=== PATIENT | female | born 1975 | race Caucasian/White ===

== ENCOUNTER 2016-12-08 16:27 | Inpatient (IN) | payer OTHER ==
[~2016-12-08] VITALS: Ht 157.5 cm; Wt 117.6 kg
[~2016-12-08 16:27] MED LIST: GLPZ10T PO; METF1000 PO; PRO20 PO
[2016-12-08 16:43] VITALS: BP 134/87; PULSE 115; RESP 14; O2SAT 97
--- NOTE | 2016-12-08 17:18 | ED.REPORT ---
HPI-NVD Date of Service Dec 08, 2016 ED Provider: Abdirahman Carrillo MD Pt is a 41 year old female with a hx of DM, asthma, high cholesterol, chronic back pain, fibromyalgia, and Sjgren's syndrome presenting to the ED complaining of nausea, vomiting and diarrhea. She reports that she had fever, chills, vomiting and diarrhea onset 1 week ago. Symptoms resolved, and then returned 3 days ago along with fatigue, headache, diaphoresis, body aches, back pain, and epigastric pain. Denies cough, runny nose or recent sick contacts. She states that she has had multiple episodes of vomiting daily, with more vomiting than diarrhea. Nursing Notes Stated Complaint: DEHYDRATION Chief Complaint: Female Abdominal Pain Nursing Notes Reviewed: Yes (Talko, Social Point not reconciled) Allergies: Coded Allergies: Sulfa (Sulfonamide Antibiotics) (Verified Allergy, Intermediate, Rash, 02/10) erythromycin base (Unverified Allergy, Mild, UNKNOWN MAYBE RASH, 12/08/16) linezolid (Verified Allergy, Unknown, rash, 05/02/12) ibuprofen (Verified Adverse Reaction, Intermediate, NAUSEA, 05/02/12) Scheduled Atorvastatin (Lipitor) 40 Mg Tablet 40 MG PO HS Fluoxetine (Fluoxetine) 20 Mg Capsule 60 MG PO DAILY Folic Acid (Folic Acid) 1 Mg Tablet 15 MG PO DAILY Gabapentin (Gabapentin) 100 Mg Capsule 100 MG PO QAM Gabapentin (Gabapentin) 100 Mg Capsule 300 MG PO HS Glipizide (Glipizide) 5 Mg Tablet 10 MG PO BIDWM Metformin (Metformin) 500 Mg Tablet 500 MG PO BIDWM Omeprazole (Omeprazole) 20 Mg Capsule.dr 40 MG PO QAM Pilocarpine (Pilocarpine) 5 Mg Tablet 10 MG PO TID Scheduled PRN Acetaminophen (Acetaminophen) 325 Mg Tablet 325 MG PO Q4H PRN PRN Fever/Pain General Time Seen by MD: 17:16 Chief Complaint Nausea, Vomiting Hx Obtained From: Patient Arrived By: Walk-in Onset Occurred: 3 days ago Symptom Duration: Since onset Vomiting: Vomiting > 10 episodes Location: : Epigastric Quality: Painful Severity: Current: Moderate Severity: Maximum: Moderate Associated with: Reports: Abdominal pain, Fever, Headache, Shaking chills Recent Healthcare: No recent doctor visit, No recent hospitalization Similar Sx Previous: No Past Medical History Past Medical History Reports DM, asthma, high cholesterol, chronic back pain, fibromyalgia, and Sjgren's syndrome Past Surgical History shoulder, arm, and back surgery Smoking History Never Smoker Social History Alcohol Use: "Social" Other Social History: Ambulatory Status Independent Review of Systems Constitutional: Reports: Chills, Fatigue, Fever Ears / Nose / Throat: Denies: Sinus problem GI: Reports: Abdominal pain, Diarrhea, Nausea, Vomiting Skin: Reports Diaphoresis Neurologic: Reports: Headache Complete sys rev & neg: except as marked. Respiratory: Denies: Non-productive cough Musculoskeletal: Reports: Back pain Physical Exam Initial Vital Signs Vital Signs (First) Date Time Temp Pulse Resp B/P Pulse Ox O2 Delivery O2 Flow Rate FiO2 12/08/16 16:43 36.8 115 14 134/87 97 Room Air Initial VS: Reviewed, Vital signs abnormal (inc hr) Head / Eyes: Atraumatic, Normocephalic, PERRL ENT: Mucous membranes moist, Conjunctiva normal, No scleral icterus Respiratory: Breath sounds normal, Clear to auscultation, No respiratory distress Cardiovascular: Regular rate & rhythm, Heart sounds normal, Intact distal pulses Neurologic: Alert, Oriented, Nonfocal Psychiatric: Mood/affect normal, Behavior normal, Normal thought content General/Constitutional: Awake Appearance / Presentation: Positive: Obese Very fatigued Abdomen: Soft, Non-tender Skin: No rash, Warm, Dry, Intact Neck: No meningismus Interpretation & Diagnostics Interpretation & Diagnostics: US ABDOMEN: IMPRESSION: Cholelithiasis and gallbladder sludge. Gallbladder wall thickening and positive sonographic Tiwari's sign, which is suspicious for acute cholecystitis. Please correlate clinically and with LFTs. Pancreas not well-visualized. Therefore recommend clinical correlation. Dictated by: Elmer Vazquez M.D. on 12/08/2016 at 21:49 Lab Results Interpretation Result Diagram: 12/08/16 1800 12/08/16 1800 Test 12/08/16 17:09 12/08/16 17:31 12/08/16 18:00 12/08/16 20:18 Hold Urine Received (Received) Urine Color Yellow (YELLOW) Urine Appearance Hazy (CLEAR,HAZY) Urine pH 6.0 (5.0-8.0) Urine Specific [place] 1.030 (1.003-1.035) Urine Protein Tracemg/dL (NEG,TRACE) Urine Glucose (UA) Negativemg/dL (NEGATIVE) Urine Ketones Negativemg/dL (NEGATIVE) Urine Occult Blood Trace (NEGATIVE) Urine Nitrite Negative (NEGATIVE) Urine Bilirubin Negative (NEGATIVE) Urine Urobilinogen Normalmg/dL (NORMAL) Urine Leukocyte Esterase Moderate (NEGATIVE) Urine RBC 0-2/hpf (0-2) Urine WBC 0-5/hpf (0-5) Urine Epithelial Cells None/hpf (NONE-MOD) Urine Crystals None seen (NONE SEEN) Urine Bacteria Few/hpf (NONE-FEW) Urine Hyaline Casts None/lpf (NONE) Urine Granular Casts None seen (NONE SEEN) Urine Waxy Casts None seen (NONE SEEN) Urine Red Blood Cell Casts None seen (NONE SEEN) Urine White Blood Cell Casts None seen (NONE SEEN) Urine Mucus None seen (None Seen) Urine Trichomonas None seen (NONE SEEN) Urine Yeast None (NONE SEEN) Urinalysis Comment None Urine Culture Reflexed Indicated White Blood Count 9.4th/mm3 (3.8-10.1) Red Blood Count 3.83mil/mm3 (3.90-5.20) Hemoglobin 11.4g/dL (12.0-15.6) Hematocrit 34.0% (35.0-46.0) Mean Corpuscular Volume 88.8fL (81-100) Mean Corpuscular Hemoglobin 29.8pg (27.0-35.0) Mean Corpuscular Hemoglobin Concent 33.5% (32.0-37.0) Red Cell Distribution Width 12.4% (12.3-15.4) Platelet Count 333bil/L (150-400) Neutrophils (%) (Auto) 84.7% (40-74) Lymphocytes (%) (Auto) 6.7% (14-46) Monocytes (%) (Auto) 7.9% (4-12) Eosinophils (%) (Auto) 0.3% (0-5) Basophils (%) (Auto) 0.2% (0-3) Prothrombin Time 11.0sec (8.1-12.5) Prothromb Time International Ratio 1.03ratio Sodium Level 134mEq/L (134-144) Potassium Level 4.7mEq/L (3.5-5.2) Chloride Level 94mEq/L (97-108) Carbon Dioxide Level 25mmol/L (18-29) Blood Urea Nitrogen 6mg/dL (6-24) Creatinine 0.58mg/dL (0.57-1.00) Estimat Glomerular Filtration Rate 163mL/min (>59) Glucose Level 183mg/dL (60-99) Lactic Acid Level 1.2mmol/L (0.4-2.0) Calcium Level 8.0mg/dL (8.5-10.1) Total Bilirubin 0.3mg/dL (0.0-1.2) Aspartate Amino Transf (AST/SGOT) 61U/L (0-50) Alanine Aminotransferase (ALT/SGPT) 33U/L (0-32) Alkaline Phosphatase 177U/L (25-150) Total Protein 6.9g/dL (6.4-8.4) Albumin 3.4g/dL (3.4-5.0) Lipase 18U/L (13-60) Acetaminophen Level < 15.0ug/mL Rx (10-25) Lab Results Interpretation: CBC normal CMP new LFT abnormalities, lipase normal, trace hyperglycemia Lipase is normal is negative Re-Eval/Medical Decision Med Decision/Clinical Course This is a 41-year-old obese female presents with abdominal pain nausea vomiting discomfort radiated to the back. He also reports a little bit of trace diarrhea , but is mostly abdominal pain and vomiting. She appears uncomfortable but not toxic. Some mild tenderness in the epigastric right upper quadrant region initially, but is mild-on repeat exam after pain persists. Symptoms started a week ago she had symptoms or flulike illness, missing a resolve, then symptoms recurred and persisted over the past few days. Patient multiple titrated doses of pain and nausea medicines but remained symptomatic. On reexamination she has clear tenderness and discomfort in the right upper epigastric pain then and then evident on her first and initial premedication exam. At the same time her labs returned back with new LFT abnormalities. Prior ultrasound and states she has known stones and she has not had her gallbladder removed, so this point a ultrasound was obtained. This ultrasound is a positive Tiwari's, positive gallbladder wall thickening at 8 mm , positive sludge, positive stones and a suggestive cholecystitis, and the patient has increased LFTs correspond to this. The case was discussed with the surgeon Dr. Sandoval the patient's being admitted to the surgical service plan of nothing by mouth, IV antibiotics, and pain and nausea medication. Just prior to being admitted before she did spike a fever. She has been started on Zosyn. He does not have jaundice, she does not have guarding, she does not clinically appear septic-just uncomfortable. She does not have overt cholangitis. Source of Hx: Old records (none in emr) Re-Evaluation/Progress : Time of Eval: 22:02 Patient Status: Condition improved Re-Evaluation/Progress Note: Discussed plan for admission and surgery in the morning. Pt understands and agrees with plan. Consultation : Referral / Consult Name: Tashi Sandoval MD Consulted With: Surgeon Call Returned at: 21:42 Manager Hotel: Will see patient, Agrees with plan, Accepts admit Differential Diagnosis: Positive: Cholecystitis, Dehydration, Negative: Drug toxicity, Drug-med reaction, Pancreatitis, Counseled Regarding: Diagnosis, Lab results, Need for follow-up, When/why to return to ED Discharge & Departure Impression: Primary Impression: Cholecystitis Disposition: Home Discharge Condition All VS Reviewed: Yes Condition: Improved Scribe Attestation Portions of this note were transcribed by Gemma Vazquez. I, Dr. Carrillo personally performed the history, physical exam and medical decision-making; I reviewed and confirmed the accuracy of the information in the transcribed note. Signed by: Yessica Galeas, 12/08/2016 and 2201. Abdirahman Carrillo MD Dec 08, 2016 17:18 GEMMA VAZQUEZ Dec 08, 2016 17:37
[2016-12-08] MEDS ORDERED: Ondansetron 2 mg/mL 2 mL Inj IVPUSH ONE ×3 (17:25→22:05)
[2016-12-08] MEDS ORDERED: 0.9% Sodium Chloride 1,000 ML IV ONE ×3 (17:25→22:35)
[2016-12-08] MEDS ORDERED: HYDROmorphone 0.5 mg/0.5 mL iSecure Syringe IVPUSH ONE (17:25)
[2016-12-08 17:41] LABS: APPEARANCE,URINE HAZY (CLEAR,HAZY); COLOR,URINE YELLOW (YELLOW)
[2016-12-08 17:42] LABS: OCCULT BLOOD,URINE TRACE (NEGATIVE); UROBILINOGEN,URINE NORMAL (NORMAL)
[2016-12-08 18:13] LABS: BASOPHILS % (AUTO) 0.2 % (0-3); EOSINOPHILS % (AUTO) 0.3 % (0-5); MONOCYTES % (AUTO) 7.9 % (4-12); Mean Corpuscular Hemoglobin 29.8 pg (27.0-35.0); Mean Corpuscular Volume 88.8 fL (81-100); NEUTROPHILS % (AUTO) 84.7 % (40-74); Platelet Count 333 bil/L (150-400)
[2016-12-08] MEDS ORDERED: HYDROmorphone 1 mg/mL Inj IVPUSH ONE ×2 (19:10→22:05)
--- NOTE | 2016-12-08 21:52 | DRSVH ---
PROCEDURE: US ABDOMEN ([id number]) INDICATIONS: abd pain ho stones, incr pain and inc LFTs TECHNIQUE: Real-time scanning was performed of the abdominal and retroperitoneal organs, with image documentatio n. COMPARISON: [facility], [place], ABDOMEN SONOGRAM, 05/12/2001, 9:42. FINDINGS: Liver: Liver is coarsely echogenic. No focal hepatic lesion Gallbladder: 3 cm gallstone is present there is also gallbladder sludge. Gallbladder wall thickening measuring up to 8mm in particular at the gallbladder neck. There is a positive sonographic Tiwari sig n Biliary ducts: Intrahepatic bile ducts are non-dilated. Extrahepatic bile duct caliber measures 5-6 mm. Normal is 6-7 mm or less in diameter, or 10 mm or less post-cholecystectomy. Pancreas: Not well-visualized Spleen: Spleen is normal in size and homogeneous in echotexture. Kidneys: Kidneys are normal in size and echotexture. Right kidney measures 10.9 cm long; left kidne y measures 13.5 cm long. No hydronephrosis or nephrolithiasis. No solid masses. Aorta: Visualized aorta is normal in caliber at less than 3 cm. Iliacs: Proximal common iliac arteries are normal in caliber at less than 2.5 cm. IVC: Intrahepatic inferior vena cava is patent. Miscellaneous: No free abdominal fluid. IMPRESSION: Cholelithiasis and gallbladder sludge. Gallbladder wall thickening and positive sonographic Tiwari's sign, which is suspicious for acute cholecystitis. Please correlate clinically and with LFTs. Pancreas not well-visualized. Therefore recommend clinical correlation.. Dictated by: Elmer Vazquez M.D. on 12/08/2016 at 21:49 Approved by: Elmer Vazquez M.D. on 12/08/2016 at 21:52
[2016-12-08 22:05] LABS: INR 1.03 ratio
[2016-12-08] MEDS ORDERED: Piperacillin-Tazo 3.375 Gm Inj 3.375 GM in Dextrose 5% Minibag Plus 50 ML IV ONE (22:05)
[2016-12-08] MEDS ORDERED: HYDROmorphone 0.5 mg/0.5 mL iSecure Syringe IVPUSH PRN (22:05)
[2016-12-08] MEDS ORDERED: Alum-Mag Hydrox-Simeth 30 mL Suspension PO PRN (22:15)
[2016-12-08] MEDS ORDERED: HYDROmorphone PCA 0.2 mg/mL 30 mL Inj IV PRN (22:15)
[2016-12-08] MEDS ORDERED: Ondansetron 2 mg/mL 2 mL Inj IVPUSH PRN (22:15)
[2016-12-08] MEDS ORDERED: GLPZ5T PO (22:17)
[2016-12-08] MEDS ORDERED: METF500T4 PO ×2 (22:17)
[2016-12-08] MEDS ORDERED: PILO5TAB2 PO (22:18)
[2016-12-08] MEDS ORDERED: FLUO20CA25 PO (22:20)
[2016-12-08] MEDS ORDERED: LIP40 PO (22:21)
[2016-12-08] MEDS ORDERED: OMEP20CA11 PO (22:21)
[2016-12-08] MEDS ORDERED: GABA-500 PO ×2 (22:22)
[2016-12-08 22:24] VITALS: BP 130/78; PULSE 104; RESP 20
[2016-12-08] MEDS ORDERED: Promethazine Inj 12.5 MG in Dextrose 5%-Pha MIX 50 ML IV PRN (22:25)
[2016-12-08] MEDS ORDERED: ACET325T51 PO (22:26)
[2016-12-08] MEDS ORDERED: FOLI1TAB18 PO (22:26)
[2016-12-08] MEDS ORDERED: HYDR200T5 PO (22:29)
[2016-12-08] MEDS: 0.9% Sodium Chloride 1,000 ML IV SCH (22:32)
[2016-12-08] MEDS ORDERED: metroNIDAZOLE Inj 1,000 MG in IV Premix 1 EACH IV ONE (22:35)
[2016-12-08 22:40] VITALS: BP 130/78; PULSE 104; RESP 20; O2SAT 96
[2016-12-08 22:58] VITALS: BP 131/74; PULSE 108; RESP 24; O2SAT 96
[2016-12-09] VITALS (14 sets, daily range): BP systolic 108–141; BP diastolic 62–71; PULSE 106–117; RESP 15–28; O2SAT 92–100
--- NOTE | 2016-12-09 02:57 | NUR ---
Admit Patient arrived to room 1029 around 2300. A&Ox3, answering questions appropriately. Able to stand and walk from ER stretcher to [facility] bed. Complaints of nausea, Zofran IVP given with effective results. Rates abd pain a 03/27. ABSTRACTOR set up per MD orders. IV patent and infusing appropriately. Made NPO after MN in preparation for surgery later today. Admit completed with patient. Med rec completed in ER. MRSA swab obtained and sent to lab r/t history of MRSA. Placed on contact precautions until swab results received. Oriented to room and call light.
[2016-12-09 06:45] LABS: BASOPHILS % (AUTO) 0.1 % (0-3); EOSINOPHILS % (AUTO) 0 % (0-5); MONOCYTES % (AUTO) 5.2 % (4-12); Mean Corpuscular Hemoglobin 29.6 pg (27.0-35.0); Mean Corpuscular Volume 89.3 fL (81-100); NEUTROPHILS % (AUTO) 88.6 % (40-74); Platelet Count 252 bil/L (150-400)
[2016-12-09 08:11] LABS: Hepatitis A Antibody IgM Negative (Negative); Hepatitis B Core Antibody IgM Negative (Negative)
[2016-12-09] MEDS ORDERED: Influenza (Adult) Vaccine 0.5 mL Syringe IM ONE ×2 (08:30→16:40)
[2016-12-09] MEDS: Insulin Human REGular 300 Unit/3 mL Inj SUBQ SCH ×4 (09:00→21:58)
--- NOTE | 2016-12-09 09:00 | PCM.HPANE ---
Patient Data Surgeon Admitting Provider:Tashi Sandoval MD Attending Provider:Tashi Sandoval MD Primary Care Physician:Vikas Gomez MD Other Provider:Leon Hooks Anesthesia Reason for Visit Cholecystitis Ht/WT & BMI Height (Feet): 5 Height (Inches): 2.00 Weight (Kilograms): 113.000 Body Mass Index 45.84 Allergies Coded Allergies: Sulfa (Sulfonamide Antibiotics) (Verified Allergy, Intermediate, Rash, 02/10) erythromycin base (Unverified Allergy, Mild, UNKNOWN MAYBE RASH, 12/08/16) linezolid (Verified Allergy, Unknown, rash, 05/02/12) ibuprofen (Verified Adverse Reaction, Intermediate, NAUSEA, 05/02/12) Past Anesthesia History Anesthesia History: Denies:: Anesthesia Reactions Diabetes History Hx Diabetes?: Yes MRSA MRSA: No Medications Reported Medications Hydroxychloroquine Sulfate 200 Mg [id number] Mg PO BID #30 TABLET Ref 0 12/08/16 Acetaminophen 325 Mg [id number] Mg PO Q4H PRN Fever/Pain Ref 0 12/08/16 Folic Acid 1 Mg Hztjxa15 Mg PO DAILY 30 Days 12/08/16 Gabapentin 100 Mg Rwosayn632 Mg PO HS 30 Days Ref 0 12/08/16 Gabapentin 100 Mg Zmttrws201 Mg PO QAM 30 Days Ref 0 12/08/16 Omeprazole 20 Mg Capsule.dr40 Mg PO QAM Ref 0 12/08/16 Atorvastatin (Lipitor)40 Mg Duuuyo52 Mg PO HS Ref 0 12/08/16 Fluoxetine 20 Mg Sllaofc20 Mg PO DAILY Ref 0 12/08/16 Pilocarpine 5 Mg Sdiflu11 Mg PO TID 12/08/16 Metformin 500 Mg Lodhwc991 Mg PO BIDWM Ref 0 12/08/16 Glipizide 5 Mg Jufady99 Mg PO BIDWM 30 Days 12/08/16 Discontinued Reported Medications Metformin 500 Mg Kebdrk062 Mg PO BID Ref 0 12/08/16 FLUoxetine-Expunged Drug, Do Not Renew! 20 Mg Rgvfcgp54 Mg PO DAILY 09/23/11 glipiZIDE-Expunged Drug, Do Not Renew! 10 Mg Bmolrs89 Mg PO QAM 09/23/11 Metformin-Expunged Drug, Do Not Renew! 1,000 Mg Tablet1,000 Mg PO DAILY 09/23/11 History History of ENT Problems?: Yes Other HEENT Pertinent History: dry mouth, nose and eyes Hx of Heart Problems?: No Cardiovascular History: Positive for:: Hypertension Denies:: Congestive Heart Failure Hx of Respiratory Problem?: Yes Respiratory History: Positive for:: Asthma Dyspnea (with weather changes) Pneumonia Denies:: COPD Chest Surgery Emphysema Hemoptysis Tuberculosis Hx Neurologic Problems?: No Hx of GI Problems?: Yes Gastrointestinal History: Positive for:: Heartburn (controlled with beef-free diet) Denies:: Diverticulitis Gastroesphageal Reflux Gastrointestinal Bleeding Hepatitis Hiatal Hernia Rectal Bleeding Hx of Problems?: Yes Genitourinary History: Positive for:: Urinary Tract Infection Female Hx: Denies:: Currently Endometriosis Pelvic Inflammatory Problems with Breasts? Hx Musculoskeletal Problems?: Yes Musculoskeletal History: Positive for:: Back Injury (disc disease 2 back surgeries) Denies:: Joint Replacement Musculoskeletal Trauma Hx of Psycho/Social Problems?: Yes Psycho Social History: Positive for:: Hx Depression Denies:: Anxiety Bipolar Disorder Suicide Attempt Hx Surgeries?: Yes (lumbar discectomy, fusion, tubal 2001, arm fracture repair) Hx Any Other Health Problems?: Yes Other History: Positive for:: Hospitalization (childbirth, surgeries ) Denies:: Cancer Endocrine Disease Thyroid Disease History Blood Transfusions: Positive for:: Accept Blood Products? Denies:: Blood Transfusions Hx Diabetes: Yes Hx Alcohol Use: NoAlcoholic Drinks Per Day: OCCASIONALLYHx Substance Use: No Smoking Status: Never Smoker Have You Smoked inLast 12 mo: No Stop/Bang Treated for Sleep Apnea?: No Do You Have a CPAP Machine?: No S-Snoring: Do You Snore Loudly: Yes T-Tired: feel tired, fatigued: Yes O-Obsered: Observed not breath: No P-Blood Pressure: treated: No B- Body Mass Index > 35 kg/m2: Yes A- Age over 50: No N- Neck Large Circumference: No G- Gender Male: No LIANA Total Score: 4 LIANA Risk Assessment: High Risk, =/>3 Yes LIANA Category 2: Yes Risk Assessment Category Category 1A: Patient has history of documented sleep apnea, and HAS NOT received any narcotic, sedative or anesthesia administration during this stay. Category 1B: Patient has history of documented sleep apnea, and HAS received any narcotic , sedative or anesthesia administration during this stay Category 2: Patient has SUSPECTED Obstructive Sleep Apnea, and HAS received any narcotic , sedative or anesthesia administration during this stay. Category 3: Patient has SUSPECTED Obstructive Sleep Apnea and HAS NOT received narcotic, sedative or anesthesia administration during this stay. Category 4: Outpatient in Procedural Areas with known sleep apnea or who screen positive for High Risk via the STOP/BANG questionnaire. Exam Exam Vital Signs Vital Signs Date Time Temp Pulse Resp B/P Pulse Ox O2 Delivery O2 Flow Rate FiO2 12/09/16 07:50 39.4 111 18 123/65 92 Room Air 12/09/16 05:22 15 94 12/09/16 03:16 38.8 110 20 126/65 96 Room Air 12/09/16 02:59 15 93 12/09/16 01:00 18 93 General Appearance: Alert HEENT/AIRWAY: MP 2 Lungs: Clear to Auscultation Heart: Exam Unremarkable Meds/Labs/Diagnostics Admission Meds Current Medications Sodium Chloride 1,000 ml @ 0 mls/hr Q0M ONCE IV Last administered on 18:14; Start 12/08/16 at 17:25; Stop 12/08/16 at 17:26; Status DC Sodium Chloride (Normal Saline) 1,000 ml @ 0 mls/hr Q0M ONCE IV Last administered on 12/08/16 17:25; Start 12/08/16 at 17:25; Stop 12/08/16 at 17:26 ; Status DC Ondansetron HCl (Zofran Inj) 8 mg ONCE ONCE IVPUSH Last administered on 18:15; Start 12/08/16 at 17:25; Stop 12/08/16 at 17:27; Status DC Hydromorphone HCl (Dilaudid Inj) 0.5 mg ONCE ONCE IVPUSH Last administered on 12/08/16 18:15; Start 12/08/16 at 17:25; Stop 12/08/16 at 17:27; Status DC Hydromorphone HCl (Dilaudid Inj) 1 mg ONCE ONCE IVPUSH Last administered on 19:22; Start 12/08/16 at 19:10; Stop 12/08/16 at 19:16; Status DC Ondansetron HCl (Zofran Inj) 8 mg ONCE ONCE IVPUSH Last administered on 19:22; Start 12/08/16 at 19:10; Stop 12/08/16 at 19:16; Status DC Hydromorphone HCl 1 mg 1 mg ONCE ONCE IVPUSH Last administered on 12/08/16 22 :32; Start 12/08/16 at 22:05; Stop 12/08/16 at 22:06; Status DC Piperacillin Sod/ Tazobactam Sod/ Dextrose/Water (Zosyn 3.375 Gm Inj/D5W Minibag Plus) 50 ml @ 100 mls/hr ONCE ONCE IV Last administered on 12/08/16 22:31; Start 12/08/16 at 22:05; Stop 12/08/16 at 22:34; Status DC Ondansetron HCl 4 mg 4 mg ONCE ONCE IVPUSH Last administered on 12/08/16 23: 39; Start 12/08/16 at 22:05; Stop 12/08/16 at 22:06; Status DC Sodium Chloride (Normal Saline) 1,000 ml @ 100 mls/hr Q10H IV Last administered on 12/08/16 22:32; Start 12/08/16 at 22:11 Acetaminophen 975 mg 975 mg ONCE ONCE PO Last administered on 12/08/16 22:40 ; Start 12/08/16 at 22:30; Stop 12/08/16 at 22:31; Status DC Metronidazole/ Sodium Chloride/ Premix (Flagyl Inj/IV Premix) 200 ml @ 200 mls/ hr ONCE ONCE IV Last administered on 12/09/16 00:43; Start 12/08/16 at 22:35 ; Stop 12/08/16 at 23:34; Status DC Labs Test 12/08/16 17:09 12/08/16 17:31 12/08/16 18:00 12/08/16 20:18 Hold Urine Received (Received) Urine Color Yellow (YELLOW) Urine Appearance Hazy (CLEAR,HAZY) Urine pH 6.0 (5.0-8.0) Urine Specific [place] 1.030 (1.003-1.035) Urine Protein Tracemg/dL (NEG,TRACE) Urine Glucose (UA) Negativemg/dL (NEGATIVE) Urine Ketones Negativemg/dL (NEGATIVE) Urine Occult Blood Trace (NEGATIVE) Urine Nitrite Negative (NEGATIVE) Urine Bilirubin Negative (NEGATIVE) Urine Urobilinogen Normalmg/dL (NORMAL) Urine Leukocyte Esterase Moderate (NEGATIVE) Urine RBC 0-2/hpf (0-2) Urine WBC 0-5/hpf (0-5) Urine Epithelial Cells None/hpf (NONE-MOD) Urine Crystals None seen (NONE SEEN) Urine Bacteria Few/hpf (NONE-FEW) Urine Hyaline Casts None/lpf (NONE) Urine Granular Casts None seen (NONE SEEN) Urine Waxy Casts None seen (NONE SEEN) Urine Red Blood Cell Casts None seen (NONE SEEN) Urine White Blood Cell Casts None seen (NONE SEEN) Urine Mucus None seen (None Seen) Urine Trichomonas None seen (NONE SEEN) Urine Yeast None (NONE SEEN) Urinalysis Comment None Urine Culture Reflexed Indicated Prothrombin Time 11.0sec (8.1-12.5) Prothromb Time International Ratio 1.03ratio Lactic Acid Level 1.2mmol/L (0.4-2.0) Acetaminophen Level < 15.0ug/mL Rx (10-25) Hepatitis A IgM Antibody Negative (Negative) Hepatitis B Surface Antigen Negative (Negative) Hepatitis B Core IgM Antibody Negative (Negative) Hepatitis C Antibody <0.1s/co ratio (0.0-0.9) Hepatitis C Comment Comment (.) Test 12/09/16 06:29 White Blood Count 8.9th/mm3 (3.8-10.1) Red Blood Count 3.55mil/mm3 (3.90-5.20) Hemoglobin 10.5g/dL (12.0-15.6) Hematocrit 31.7% (35.0-46.0) Mean Corpuscular Volume 89.3fL (81-100) Mean Corpuscular Hemoglobin 29.6pg (27.0-35.0) Mean Corpuscular Hemoglobin Concent 33.1% (32.0-37.0) Red Cell Distribution Width 12.3% (12.3-15.4) Platelet Count 252bil/L (150-400) Neutrophils (%) (Auto) 88.6% (40-74) Lymphocytes (%) (Auto) 5.8% (14-46) Monocytes (%) (Auto) 5.2% (4-12) Eosinophils (%) (Auto) 0% (0-5) Basophils (%) (Auto) 0.1% (0-3) Sodium Level 135mEq/L (134-144) Potassium Level 4.1mEq/L (3.5-5.2) Chloride Level 97mEq/L (97-108) Carbon Dioxide Level 25mmol/L (18-29) Blood Urea Nitrogen 5mg/dL (6-24) Creatinine 0.64mg/dL (0.57-1.00) Estimat Glomerular Filtration Rate 145mL/min (>59) Glucose Level 175mg/dL (60-99) Calcium Level 7.2mg/dL (8.5-10.1) Total Bilirubin 0.4mg/dL (0.0-1.2) Aspartate Amino Transf (AST/SGOT) 48U/L (0-50) Alanine Aminotransferase (ALT/SGPT) 34U/L (0-32) Alkaline Phosphatase 189U/L (25-150) Total Protein 6.1g/dL (6.4-8.4) Albumin 3.1g/dL (3.4-5.0) Lipase 14U/L (13-60) Plan Impression Patient chart reviewed, patient interviewed and anesthestic plan with risks, benefits, and alternatives discussed, and informed consent obtained. ASA Physical Status: ASA2 Mod Systemic Disease Anesthetic Support Modalities: [place] Scope Anesthetic Plan: GA Bene/Risks/Altern/Consents: Yes HP Complete Prior to Induction: Yes Juan Britton MD Dec 09, 2016 09:00
[2016-12-09] MEDS: 0.9% Sodium Chloride 1,000 ML IV SCH ×2 (09:02→18:11)
[2016-12-09] MEDS: Piperacillin-Tazo 3.375 Gm Inj 3.375 GM in Dextrose 5% Minibag Plus 50 ML IV SCH ×3 (10:07→23:38)
--- NOTE | 2016-12-09 10:08 | NUR ---
Transfer To OR via bed at 09:55. Report given to Ab[place]ola. Saline locked. Zosyn not administered, did not arrive from pharmacy despite fax and phone call. [employer] OFFICER aware. accompanied pt to OR.
[2016-12-09] MEDS ORDERED: Neostigmine 1 mg/mL 5 mL Inj ONE (11:21)
[2016-12-09] MEDS ORDERED: fentaNYL-PF 50 mCg/mL 2 mL Inj ONE (11:21)
[2016-12-09] MEDS ORDERED: Glycopyrrolate 0.2 mg/mL 5 mL Inj ONE (11:21)
[2016-12-09] MEDS ORDERED: Ondansetron 2 mg/mL 2 mL Inj ONE (11:21)
[2016-12-09] MEDS ORDERED: Propofol 10,000 mCg/mL 20 mL Inj ONE (11:21)
[2016-12-09] MEDS ORDERED: MetoCLOpramide 5 mg/mL 2 mL Inj ONE (11:21)
--- NOTE | 2016-12-09 11:22 | HP ---
[address] [address] HISTORY AND PHYSICAL PATIENT: JANE HEDRICK : 1975 MR#: [id number] ADMIT: 12/08/2016 JOB ID: [id number] CORRECTED REPORT: DATE OF SERVICE: 12/09/2016 CHIEF COMPLAINT: This is a 41-year-old woman with abdominal pain. This consultation is requested by Dr. Abdirahman Carrillo of the Emergency Department. HISTORY OF PRESENT ILLNESS: This is a 41-year-old woman presented to the emergency department late last night with a 9-day history of abdominal pain and vomiting. She also complains of diarrhea, fevers, and chills. Her symptoms initially improved and then three days ago worsened again and also included fatigue, headache, body aches, back pain. She complains that she is thirsty today. She received IV Zosyn and was admitted to the hospital overnight with plans for probable cholecystectomy in the morning. Since being admitted, her labs have shown mild elevation in her LFTs including AST 61, ALT 33, and alkaline phosphatase 177, with a normal bilirubin level of 0.3. Lactate was normal. White blood cell count was normal. She has been febrile and tachycardic. PAST MEDICAL HISTORY: 1. Diabetes. 2. Asthma. 3. High cholesterol. 4. Chronic back pain. 5. Fibromyalgia. 6. Sjogren syndrome. PAST SURGICAL HISTORY: 1. She has had panniculitis in the past and has had incision and drainage for this, with MRSA infection. 2. Orthopedic operations on her shoulder and back. MEDICATIONS: Home medications are reviewed and include atorvastatin, fluoxetine, folate, gabapentin, glipizide, metformin, omeprazole, pilocarpine. ALLERGIES: SULFA, ERYTHROMYCIN, LINEZOLID, IBUPROFEN. SOCIAL HISTORY: She lives in [place], [place], with her who is present today. She is not currently working outside of the home. She only occasionally drinks alcohol. She is not a smoker. FAMILY HISTORY: Reviewed and noncontributory. REVIEW OF SYSTEMS: Eleven point review of systems is performed and is positive for nausea, fever, chills, abdominal pain, diarrhea, vomiting, headache, diaphoresis, back pain, and is otherwise negative. PHYSICAL EXAMINATION: Temperature 39.4, heart rate 111, blood pressure 123/65, respiratory rate 18, saturation 92% on room air. General: Awake and alert, mild distress. She is diaphoretic. Head: Normocephalic. Neck: Supple. Cardiac: Tachycardia. Respiratory: Breathing easily on room air. Abdomen: Soft, obese. Tenderness in the right upper quadrant to moderate palpation. No rebound or guarding. Remaining quadrants of the abdomen are not tender to palpation. She has previous incision and drainage sites on the lower abdomen from her panniculitis. Neurologic: No gross deficits. Psychiatric: Normal cognition and judgment. Extremities: No edema. LABORATORY: White blood cell count is 8.9, hematocrit 31.7, platelets 252. Blood glucose was 161 this morning. Comprehensive metabolic panel is normal with the exception of blood glucose 175 this morning, calcium 7.2. AST normalized to 48. ALT is 34, alkaline phosphatase 189, albumin 3.1. Lactate is 1.2. Creatinine is 0.64. IMAGING: Images from her abdominal ultrasound are personally reviewed and reveal cholelithiasis including sludge as well as a significant 3 cm gallstone. She was reported to have a positive sonographic Tiwari sign. There is gallbladder wall thickening. All of these findings are suspicious for acute cholecystitis. ASSESSMENT: A 41-year-old woman with acute cholecystitis. I recommend laparoscopic cholecystectomy. She is at a very increased risk for complications including wound infection, both due to her morbid obesity and history of the need for incision and drainage for panniculitis. She at a much elevated risk for conversion to open because she has had 9 days of symptoms and is acutely febrile and tachycardic, indicative that she may have a gangrenous gallbladder. I described the risks and benefits of the procedure, described why conversion to open is sometimes necessary, and described some of the alternatives to a full laparoscopic cholecystectomy which can include a subtotal cholecystectomy and cholecystostomy tube. I described the risks of common bile duct injury and the consequences of this. Her and sister were present for this discussion. I tuyet the anatomy of the hepatobiliary system during the discussion. She and they agree and she elects to proceed. This will be performed on an urgent basis this morning. Corrected by DANIELLE 12/25/16 at 12:00pm Report type.
[2016-12-09] MEDS ORDERED: Bupivacaine-MPF 0.5% W/EPI 30 mL Inj INFILTRATE ONE (11:38)
[2016-12-09] MEDS ORDERED: Lactated Ringer's 1,000 ML IV ONE ×2 (11:44)
[2016-12-09] MEDS ORDERED: Lactated Ringer's 500 ML IV PRN (12:14)
[2016-12-09] MEDS ORDERED: Labetalol 5 mg/mL 4 mL Inj IV PRN (12:15)
[2016-12-09] MEDS ORDERED: HYDROmorphone 1 mg/mL Inj IVPUSH PRN (12:15)
[2016-12-09] MEDS ORDERED: fentaNYL-PF 50 mCg/mL 2 mL Inj IVPUSH PRN (12:15)
[2016-12-09] MEDS ORDERED: Ondansetron 2 mg/mL 2 mL Inj IVPUSH PRN ×2 (12:15→14:55)
[2016-12-09] MEDS ORDERED: MetoCLOpramide 5 mg/mL 2 mL Inj IVPUSH PRN ×2 (12:15→14:55)
[2016-12-09] MEDS ORDERED: EPHEDrine Sulfate 50 mg/mL Inj IVPUSH PRN (12:15)
[2016-12-09] MEDS ORDERED: Dexamethasone 4 mg/mL Inj IVPUSH PRN (12:15)
[2016-12-09] MEDS ORDERED: Atropine 0.4 mg/mL Inj IVPUSH PRN (12:15)
[2016-12-09] MEDS ORDERED: Phenylephrine 10,000 mCg/mL Inj IVPUSH PRN (12:15)
[2016-12-09] MEDS: Lactated Ringer's 1,000 ML IV SCH ×2 (12:35→15:28)
--- NOTE | 2016-12-09 15:07 | PCM.ANEP1 ---
Post Anesthesia Phase 1 PACU Phase 1 Assessment Vital Signs Vital Signs Date Time Temp Pulse Resp B/P Pulse Ox O2 Delivery O2 Flow Rate FiO2 12/09/16 15:05 109 28 139/66 95 Room Air 12/09/16 15:00 111 27 135/66 97 Room Air 12/09/16 14:55 113 19 141/68 98 Room Air 12/09/16 14:50 116 19 125/66 100 Simple Mask 8 12/09/16 14:45 37.7 117 15 139/66 100 Simple Mask 8 12/09/16 10:11 18 92 12/09/16 07:50 39.4 111 18 123/65 92 Room Air Anesthetic Administered: GA Level of Alertness: Awake, talking PAEZ's with Equal Strength: Yes Pain: Yes (RN awares) Pain Scale Score: 7 Oxygen Delivery: Simple Mask Lungs: Clear to Auscultation Dermatome Level: Full Sensation Juan Britton MD Dec 09, 2016 15:07
--- NOTE | 2016-12-09 15:08 | PCM.ANEP2 ---
Post Anesthesia Evaluation ASA/CMS Post Anesthesia VS in Patient's Normal Range?: Yes Resp Stable; Airway Patent?: Yes CV Function & Hydration Stable: Yes Mental Status Recovered?: Yes Pain control Satisfactory?: Yes N/V Control Satisfactory?: Yes Juan Britton MD Dec 09, 2016 15:08
--- NOTE | 2016-12-09 15:09 | NUR ---
Social Work: Brief Note Data: Pt is a 41 year old female admitted 12/08/16 for cholecystitis per H&P. Pts insurance is Omid RAVI and PCP is Vikas Gomez MD. EMR reviewed. Pt has no fdc care insurance or VA benefits. Pt resides in [place] with her . She remains independent with her ADLs, does not use any DME, and drives. Pt does not have DPOA on file, SW will follow up regarding this. SW attempted to talk to patient at bedside, but she was in the OR for a laparoscopic cholecystectomy. SW will continue to follow for discharge needs. Assessment: Pt who is independent at base. Plan: Pt who is independent at base was in OR when SW attempted to meet with pt. SW will continue to follow for needs. JT Rodriguez
--- NOTE | 2016-12-09 15:31 | OP ---
[address] [address] OPERATIVE REPORT PATIENT: JANE HEDRICK : 1975 MR#: [id number] ADMIT: 12/08/2016 JOB ID: [id number] DATE OF SURGERY: 12/09/2016 PREOPERATIVE DIAGNOSIS(ES): Acute cholecystitis. POSTOPERATIVE DIAGNOSIS(ES): Acute gangrenous cholecystitis. PROCEDURE PERFORMED: Laparoscopic cholecystectomy. SURGEON: Romana Johns MD ASSOCIATE PROFESSOR OF SOCIOLOGY: Sekou Centeno PA-C; Gardenia Sow MS3 HISTORY OF PRESENT ILLNESS: This is a 41-year-old woman who presented with a 9-day history of abdominal pain and vomiting. She had right upper quadrant tenderness and an abdominal ultrasound performed in the emergency department revealed a thickened gallbladder wall, positive sonographic Tiwari sign, sludge and stones in the gallbladder including a 3 cm stone, and was consistent with acute cholecystitis. She was febrile and tachycardic and therefore was taken urgently to the operating room for laparoscopic cholecystectomy. FINDINGS: 1. Severe inflammation with gangrene of a portion of the wall of the gallbladder. 2. A single large 3 cm gallstone was identified. 3. Severe adhesions from inflammation. DESCRIPTION OF PROCEDURE: The patient was brought to the operating room and placed in supine position. General anesthesia was induced. A warming blanket and SCDs were placed. Antibiotics were infused. A Sandy catheter was placed. The operative field was prepped and draped in sterile fashion. A pause was performed to confirm the correct patient, procedure, and site. A 10 cm vertical midline incision was made 5 cm above the umbilicus due to the patient's body habitus. The abdominal cavity was entered with an Optiview trocar and an the intraperitoneal space was insufflated. Three additional trocars were placed, one in the mid epigastrium and two in the right upper quadrant. The gallbladder was found to be severely inflamed, with omentum adhesed to it. Upon grasping it, the wall was found to be partially gangrenous and it burst, revealing hydrops; white bile spilled out and was suctioned. The gallbladder was then grasped and lifted cephalad. The omentum was taken off of it slowly and carefully. The duodenum was adhered to the gallbladder due to the inflammation and was very carefully dissected off of it. A very slow and meticulous dissection then began to carefully expose the cystic duct and cystic artery. A Ray-Shakira was inserted into the abdomen during the procedure to assist with tamponade of very mild bleeding coming from the inflammatory rind around the gallbladder. It was removed at the end of the case. The common bile duct was identified. The cystic duct and cystic artery were very closely approximated and were adherent. The cystic plate was carefully dissected. The cystic duct and cystic artery were adhered to one another with thick inflammation and due to the potential for bleeding from the cystic artery, after careful tedious dissection, the decision was made to not separate them. This cystic plate was carefully exposed such that the cystic duct and the cystic artery were seen to be the only structures that were entering the gallbladder. The cystic duct was very short and the risk of additional dissection very high, therefore the decision was made to not proceed with cholangiogram. Two clips were placed around the cystic duct and cystic artery simultaneously on the patient's side and a single clip was placed around these structures on the gallbladder side and it was divided. The gallbladder was then lifted cephalad and taken off of its bed on the liver with electrocautery. At the most superior and anterior aspect the mucosa of the gallbladder remained on the bed of the liver in a 2 cm x 2 cm distribution. This was ablated with electrocautery. In order to grasp the gallbladder sufficiently to remove it from the bed of the gallbladder, a single large 3 cm black gallstone was removed. Ultimately an EndoCatch bag was placed and the gallstone and gallbladder were placed within it. The area was copiously irrigated and suctioned. The bed of the liver was carefully inspected to confirm that it was hemostatic. The clips were carefully inspected to confirm that there was no bleeding or bile leak. The fascial defect had to be opened at the supraumbilical port site in order to extract the gallbladder and the large gallstone. This was then closed with two interrupted 0 PDS stitches. 0.5% Marcaine with epinephrine was infused into the fascia at the site for postoperative analgesia. The three additional ports were removed under direct vision. The skin was closed with 4-0 Monocryl. Sterile dressings were placed. The patient was awakened from general anesthesia and taken to the postoperative care unit in good condition. COMPLICATIONS: None. SPECIMENS: Gallbladder and gallstone. ESTIMATED BLOOD LOSS: 5 mL. A modifier 22 is requested for this case because, given the extent of the inflammation, it took greater than three times the normal amount of time to complete. MTDD
--- NOTE | 2016-12-09 15:50 | NUR ---
Post-op Returned to [facility] room 1029 via bed at 15:25. Report received from Toni. Awake and oriented. Equal strength and movement in all extremities. 96% RA; METER REPAIRER HELPER for LIANA risk. Still febrile and tachycardic. IVF and antibiotics admin as ordered. 4 lap sites CDI. Requests and tolerates water. Family in room.
--- NOTE | 2016-12-09 15:53 | PCM.CHPMED ---
Subjective Date of Service: Dec 09, 2016 Provider requesting consult: Romana Johns MD Primary Physician: Admitting Physician: Tashi Sandoval MD Primary Care Physician: Vikas Gomez MD Attending Physician: Tashi Sandoval MD Chief Complaint: Chief Complaint: positive blood cultures History of Present Illness: Patient is a 41 year old female with a pmh of DM, asthma, high cholesterol, chronic back pain, fibromyalgia, and Sjgren's syndrome that is presenting with acute cholecystitis requiring surgical intervention. Patient was admitted through the ER and had blood cultures drawn in 4 seperate bottles. Patient was seen to have positive blood cultures in 2 of the four bottles. Patient was evaluated, seen to have cholecystitis and had a laprascopic removal of the gallbladder. Patient tolerated the procedure without incidence and is currently resting comfortably. Patient upon questioning has a history of MRSA bacteremia that resulted after patient had an I&D of a pannicular abscess. Patient went on a protracted course of antibiotics for the next few weeks as per the patient and the family, however they are unsure to as what the antibiotic was, nor are they confident to as whether there was an infection in the patients heart. Patient is adament that there was no cardio involvment and that this was simply due to persistent bacteremia. Patient otherwise has no complaints and no symptoms that would suggest septic emboli. Review of Systems: Constitutional: Reports: Malaise, Sweats, Weakness, Denies: Chills, Fever, Other Eyes: Denies: Blurred Vision, Conjunctive Inflammation, Double Vision, Eyelid Inflammation, Other, Pain, Redness, Vision Changes ENT: Denies: Dental Problems, Dysphagia, Ear Discharge, Ear Pain, Hoarseness, Membranes Dry, Nasal Congestion, Nose Discharge, Nose Pain, Other, Throat Pain, Tinnitus, Ulcers/Sores in Mouth Neck: Denies: Mass, Other, Pain, Swelling Cardiovascular: Denies: Chest Pain, Edema, Irregular Heart Rate, Other, Palpitations, Rapid Heart Rate, SOB on Exertion, SOB while laying flat Gastrointestinal: Reports: Abdominal Pain, Change in Appetite, Nausea, Vomiting , Denies: Black tarry stools, Blood in stool (red), Constipation, Diarrhea, Heartburn, Other, Use of Laxatives Genitourinary: Denies: Change in Frequency, Decrease Urinary Output, Decrease Urinary Stream, Dysuria, Has burning or pain with urination, Hematuria, Hemodialysis, Incontinence, No burning or pain with urination, Nocturia, Other, Peritoneal Dialysis Reproductive Female: Reports: Other (no history of recent skin lesions either ) , Denies: /Para, Last Menstrual Cycle, Sexually Active, Use of Contraceptive, Venereal Disease Skin: Denies: Blisters, Bruising, Dry or Flakiness, Itching, Lesions, Other, Rash, Redness, Ulcers Neurological: Denies: Change in LOC, Change in Speech, Confusion, Difficulty Walking, Dizziness, Double Vision, Drooping Mouth, Incoordination, Localized Weakness, Numbness, Other, Seizures, Somnolence, Tremors, Vertigo Psychologic: Denies: Agitation, Anxiety, Depression, Insomnia, Other, PTSD- Post Traumatic Stress Disorder, Suicidal Thoughts Endocrine: Denies: Abnormal Hair Growth, Blood Glucose Review, Diaphoresis, Excessive Thirst, Intolerant to Cold, Intolerant to Heat, Other, Recent A1C, Urinating Frequently, Weight Gain Hematologic: Denies: Abnormal Bleeding, Bruising, Other Lymphatic: Denies: Adenopathy, Swollen Lymph Node Above Collarbone, Swollen Lymph Nodes in Neck, Tender Lymph Nodes Axillia, Tender Lymph Nodes Groin PMH HEENT History: Denies:: Cataracts Glaucoma Hearing Problem Hx Ear Infection Hx Eye Problem Sinus Problem TMJ Cardiovascular History: Denies:: AICD Abdominal Aortic Aneurism Atrial Fibrillation Cardiac Surgery Congestive Heart Failure Coronary Artery Disease Deep Vein Thrombosis Heart Murmur Hypertension Other Cardiac Disorders Pacemaker Peripheral Vascular Rheumatic Fever Thrombophlebitis Valvular Heart Disease Respiratory History: Denies:: Asthma COPD Chest Surgery Emphysema Oxygen Administration Pneumonia Pulmonary Embolism Sleep Apnea Tuberculosis Use of C-PAP Machine Use of Inhalers / NEBS Gastrointestinal History: Positive for a: Gastroesphageal Reflux Genitourinary History: Denies: HX of Hemodialysis Kidney Stones Peritoneal Dialysis Urinary Tract Infection Reproductive History Female: Denies: Currently ? Endometriosis Pelvic Inflammatory DX Problems with Breasts? Neurological History: Denies: Alzheimer's Disease CVA Dementia Multiple Sclerosis Parkinson's Disease Peripheral Neuropathy Seizures TIA Musculoskeletal History: Positive for: Back Injury (protruding disc s/p disectomy and fusion ) Psycho Social History: Denies:: Anxiety Bipolar Disorder Hx Depression Suicide Attempt Skin History: Denies:: History Skin Disorders? Pressure Ulcers Hematic/Lymphatic/Neoplastic: Denies: Anemia Blood Disorders Cancer Clotting Problems Swollen Glands Bedside Blood Glucose: 161 Surgical History I&D of abdominal wall abscess Rotator Cuff repair Lap Marisela Spinal fusion and discectomy Home Medications Atorvastatin (Lipitor) 40 Mg Tablet 40 MG PO HS Fluoxetine (Fluoxetine) 20 Mg Capsule 60 MG PO DAILY Folic Acid (Folic Acid) 1 Mg Tablet 15 MG PO DAILY Gabapentin (Gabapentin) 100 Mg Capsule 100 MG PO QAM Gabapentin (Gabapentin) 100 Mg Capsule 300 MG PO HS Glipizide (Glipizide) 5 Mg Tablet 10 MG PO BIDWM Metformin (Metformin) 500 Mg Tablet 500 MG PO BIDWM Omeprazole (Omeprazole) 20 Mg Capsule.dr 40 MG PO QAM Pilocarpine (Pilocarpine) 5 Mg Tablet 10 MG PO TID Allergies: Coded Allergies: Sulfa (Sulfonamide Antibiotics) (Verified Allergy, Intermediate, Rash, 02/10) erythromycin base (Unverified Allergy, Mild, UNKNOWN MAYBE RASH, 12/08/16) linezolid (Verified Allergy, Unknown, rash, 05/02/12) ibuprofen (Verified Adverse Reaction, Intermediate, NAUSEA, 05/02/12) Family History Family History non-contributory Social History Hx Alcohol Use: NoAlcoholic Drinks Per Day: OCCASIONALLYHx Substance Use: No Hx Tobacco Use: Yes Smoking Status: Never Smoker Exam Vital Signs Vital Sign - Last Date Time Temp Pulse Resp B/P Pulse Ox O2 Delivery O2 Flow Rate FiO2 12/09/16 10:11 18 92 12/09/16 07:50 39.4 111 123/65 Room Air Intake and Output 12/08/16 12/08/16 12/09/16 Cumulative From/Thru 15:00 23:00 07:00 12/08/16 16:43 - 12/09/16 06:34 Intake Total 2000 ml 929 ml 2929 ml Output Total 500 ml 500 ml Balance 2000 ml 429 ml 2429 ml Intake Oral 100 ml 100 ml IV Total 2000 ml 829 ml 2829 ml Output Urine Total 500 ml 500 ml # Voids 2 1 3 # Bowel Movements 0 0 General: Alert, Oriented X3 Head: Normal Eyes: PERRLA Mouth: Mucous Membr Moist/Dennis Neck: Supple Chest & Lungs: Chest Wall Normal, Clear to auscultation & percussion Back, Sacral Area and Buttocks: Normal (no evidence of lesions ) Abdomen: Tender, Distended, Obese Musculoskeletal: Normal Range of Motion Extremities: No cyanosis/clubbing/edma bilat Additional Information: No allegra lesions, blisters or ulcerations Lab and Diagnostics Result Diagram: 12/09/1662812/09/16628 Assessment & Plan Assessment Patient is a 41 year old female s/p lap marisela that is presenting with a positive blood cultures in 2/4 bottles, that is most likely growing strep sp. Patient has a history of bacteremia with MRSA in the past. Patient is currently stable without any signs of allegra sepsis upon examination. Patient is otherwise hemodynamically stable. Patient has no skin lesions of infections on exam that would presdispose patient to bacteremia. - would recommend repeating the blood cultures X 2 from two different sites - currently patient is on zosyn which has intermediate results with strep sp - would continue zosyn for the time being - if blood cultures are positive would recommend an DAVID and infectious disease consult Problems: VTE Mechanical Devices: Intermittant Pneumatic CD Juancho Joseph MD Dec 09, 2016 14:06
[2016-12-09 17:13] LABS: BASOPHILS % (AUTO) 0.2 % (0-3); EOSINOPHILS % (AUTO) 0 % (0-5); MONOCYTES % (AUTO) 4.2 % (4-12); Mean Corpuscular Hemoglobin 29.5 pg (27.0-35.0); Mean Corpuscular Volume 89.8 fL (81-100); NEUTROPHILS % (AUTO) 91.8 % (40-74); Platelet Count 244 bil/L (150-400)
[2016-12-09] MEDS: oxyCODONE-Acetamin 5-325 mg Tablet PO PRN ×3 (18:14→23:38)
--- NOTE | 2016-12-09 18:19 | NUR ---
Post op progress Tolerates small amounts solid food (pudding and bites of chicken), taking oral fluids. Converted from VASCULAR TECHNOLOGIST SONOGRAPHER to Percocet for abd pain 01/25. Denies nausea. Denies flatus, bowel tones hypoactive. Sat in chair for dinner, walked to bathroom with steady gait. IVF and antibiotics infusing per orders. S/s insulin administered. 4 lap sites with bandaids CDI. Continue to monitor.
--- NOTE | 2016-12-09 20:30 | NUR ---
Pain pt. reported pain of 6/10 less than 2 hours after receiving 1 tab of Percocet. Pt. was given a second tab as indicated in order Pt. now reports pain of 4/10. It may be beneficial to give pt. 2 tabs as initial dose to prevent pain recurrence.
[2016-12-10] MEDS: 0.9% Sodium Chloride 1,000 ML IV SCH ×3 (02:30→23:21)
[2016-12-10 04:42] VITALS: BP 121/75; PULSE 111; RESP 18; O2SAT 92
--- NOTE | 2016-12-10 05:34 | NUR ---
pain pt received 1-2 tabs of Percocet for pain this shift. she reports pain at a tolerable level. she is able to get up and ambulate to the bathroom SBA. steady on her feet. still has low grade fever and is tachycardic with activity. care continues.
[2016-12-10 06:59] LABS: BASOPHILS % (AUTO) 0.2 % (0-3); EOSINOPHILS % (AUTO) 0.1 % (0-5); MONOCYTES % (AUTO) 5.4 % (4-12); Mean Corpuscular Hemoglobin 29.3 pg (27.0-35.0); Mean Corpuscular Volume 88.5 fL (81-100); NEUTROPHILS % (AUTO) 85.6 % (40-74); Platelet Count 257 bil/L (150-400)
[2016-12-10] MEDS: Piperacillin-Tazo 3.375 Gm Inj 3.375 GM in Dextrose 5% Minibag Plus 50 ML IV SCH ×3 (07:57→23:22)
[2016-12-10] MEDS: Insulin Human REGular 300 Unit/3 mL Inj SUBQ SCH ×4 (07:58→22:56)
[2016-12-10] MEDS: oxyCODONE-Acetamin 5-325 mg Tablet PO PRN ×4 (09:15→22:50)
[2016-12-10 10:24] VITALS: BP 113/70; PULSE 102; RESP 25; O2SAT 93
[2016-12-10 15:05] VITALS: BP 126/77; PULSE 104; RESP 18; O2SAT 95
--- NOTE | 2016-12-10 15:27 | PCM.PNSURG ---
Subjective Date of Service: Dec 10, 2016 Visit Information: Reason for Visit Cholecystitis Surgery/Surgery Date JAQUAN HOLDER 12/09/16 Post-Op Day #1 Date of Admission: Dec 08, 2016 at 22:11 Hospital Day # Subjective: Feels much better than prior to her operation. Eating Jell-O and drinking fluids with no nausea or vomiting. Denies flatus or bowel movement. Comfortable on oral analgesic. Ambulating in the room. Postop General: Other (as above) Gastrointestinal: Tolerating Oral Feedings, No N/V Pain Management: PO Postop Activity: Ambulating in Room Only Objective Vital Sign- Last 8 Hours Date Time Temp Pulse Resp B/P Pulse Ox O2 Delivery O2 Flow Rate FiO2 12/10/16 15:05 37.7 104 18 126/77 95 Room Air 12/10/16 10:24 37.4 102 25 113/70 93 Room Air Intake and Output- Last 8 Hour 12/10/16 Cumulative From/Thru 07:00 12/08/16 16:43 - 12/10/16 05:33 Intake Total 650 ml 6805 ml Output Total 550 ml 1600 ml Balance 100 ml 5205 ml Intake Oral 650 ml 1348 ml IV Total 5457 ml Output Urine Total 550 ml 1600 ml # Voids 2 7 # Bowel Movements 0 0 General: Alert, Cooperative, No Acute Distress, Anicteric Lungs: Clear to Auscultation Heart: No Murmurs/Rubs/Gallops Abdomen: Soft, Non-tender, Protuberant SURGICAL WOUND : Wound General Appearence: Steri Strips, Sutures, No Erythema, No Discharge, Wound under dressing Neuro: Normal Speech Catheters: None Result Diagram: 12/10/16 0635 12/10/16 0635 Assessment & Plan Impression Primary diagnosis: Acute gangrenous cholecystitis. POD #1 recovering as expected. Positive preoperative blood cultures which have been repeated by hospitalist lean consultant. Other diagnoses: 1. Diabetes. 2. Asthma. 3. High cholesterol. 4. Chronic back pain. 5. Fibromyalgia. 6. Sjogren syndrome. Problems: Plan 1. Diet as tolerated 2. May be ready for discharge as early as tomorrow if cleared by the hospitalist service recognizing that this is pending repeat blood culture results. 3. May shower. Pain Management: Oral analgesic VTE Prophylaxis: SCDs Resuscitation Status: CPR: Attempt Resuscitation Sekou Centeno PA-C Dec 10, 2016 15:27
--- NOTE | 2016-12-10 16:21 | PCM.PNMED ---
Subjective Date of Service Dec 10, 2016 Subjective Patient is having some abdominal pain. Has tolerated clear liquid diet. Exam Vital Signs Vital Sign - Last Date Time Temp Pulse Resp B/P Pulse Ox O2 Delivery O2 Flow Rate FiO2 12/10/16 15:05 37.7 104 18 126/77 95 Room Air 12/09/16 14:50 8 Intake and Output 12/09/16 12/09/16 12/10/16 Cumulative From/Thru 14:59 22:59 06:59 12/08/16 16:43 - 12/10/16 05:33 Intake Total 2428 ml 798 ml 650 ml 6805 ml Output Total 50 ml 500 ml 550 ml 1600 ml Balance 2378 ml 298 ml 100 ml 5205 ml Intake Oral 598 ml 650 ml 1348 ml IV Total 2428 ml 200 ml 5457 ml Output Urine Total 50 ml 500 ml 550 ml 1600 ml # Voids 2 2 7 # Bowel Movements 0 0 Exam Constitutional obese woman in mild pain distress Head: Normocephalic atraumatic Chest: Clear to auscultation Cor: Regular rate and rhythm S1-S2 Abdomen: soft mild diffuse tenderness bowel sounds hypoactive extremities: No pedal edema Neuro: Alert and oriented 3 motor strength is intact bilaterally Lab and Diagnostics Laboratory Tests 72 Hours Test 12/08/16 17:09 12/08/16 17:31 12/08/16 18:00 12/08/16 20:18 Hold Urine Received (Received) Urine Color Yellow (YELLOW) Urine Appearance Hazy (CLEAR,HAZY) Urine pH 6.0 (5.0-8.0) Urine Specific [place] 1.030 (1.003-1.035) Urine Protein Tracemg/dL (NEG,TRACE) Urine Glucose (UA) Negativemg/dL (NEGATIVE) Urine Ketones Negativemg/dL (NEGATIVE) Urine Occult Blood Trace (NEGATIVE) Urine Nitrite Negative (NEGATIVE) Urine Bilirubin Negative (NEGATIVE) Urine Urobilinogen Normalmg/dL (NORMAL) Urine Leukocyte Esterase Moderate (NEGATIVE) Urine RBC 0-2/hpf (0-2) Urine WBC 0-5/hpf (0-5) Urine Epithelial Cells None/hpf (NONE-MOD) Urine Crystals None seen (NONE SEEN) Urine Bacteria Few/hpf (NONE-FEW) Urine Hyaline Casts None/lpf (NONE) Urine Granular Casts None seen (NONE SEEN) Urine Waxy Casts None seen (NONE SEEN) Urine Red Blood Cell Casts None seen (NONE SEEN) Urine White Blood Cell Casts None seen (NONE SEEN) Urine Mucus None seen (None Seen) Urine Trichomonas None seen (NONE SEEN) Urine Yeast None (NONE SEEN) Urinalysis Comment None Urine Culture Reflexed Indicated White Blood Count 9.4th/mm3 (3.8-10.1) Red Blood Count 3.83mil/mm3 (3.90-5.20) Hemoglobin 11.4g/dL (12.0-15.6) Hematocrit 34.0% (35.0-46.0) Mean Corpuscular Volume 88.8fL (81-100) Mean Corpuscular Hemoglobin 29.8pg (27.0-35.0) Mean Corpuscular Hemoglobin Concent 33.5% (32.0-37.0) Red Cell Distribution Width 12.4% (12.3-15.4) Platelet Count 333bil/L (150-400) Neutrophils (%) (Auto) 84.7% (40-74) Lymphocytes (%) (Auto) 6.7% (14-46) Monocytes (%) (Auto) 7.9% (4-12) Eosinophils (%) (Auto) 0.3% (0-5) Basophils (%) (Auto) 0.2% (0-3) Prothrombin Time 11.0sec (8.1-12.5) Prothromb Time International Ratio 1.03ratio Sodium Level 134mEq/L (134-144) Potassium Level 4.7mEq/L (3.5-5.2) Chloride Level 94mEq/L (97-108) Carbon Dioxide Level 25mmol/L (18-29) Blood Urea Nitrogen 6mg/dL (6-24) Creatinine 0.58mg/dL (0.57-1.00) Estimat Glomerular Filtration Rate 163mL/min (>59) Glucose Level 183mg/dL (60-99) Lactic Acid Level 1.2mmol/L (0.4-2.0) Calcium Level 8.0mg/dL (8.5-10.1) Total Bilirubin 0.3mg/dL (0.0-1.2) Aspartate Amino Transf (AST/SGOT) 61U/L (0-50) Alanine Aminotransferase (ALT/SGPT) 33U/L (0-32) Alkaline Phosphatase 177U/L (25-150) Total Protein 6.9g/dL (6.4-8.4) Albumin 3.4g/dL (3.4-5.0) Lipase 18U/L (13-60) Acetaminophen Level < 15.0ug/mL Rx (10-25) Hepatitis A IgM Antibody Negative (Negative) Hepatitis B Surface Antigen Negative (Negative) Hepatitis B Core IgM Antibody Negative (Negative) Hepatitis C Antibody <0.1s/co ratio (0.0-0.9) Hepatitis C Comment Comment (.) Test 12/09/16 06:29 12/09/16 16:54 12/10/16 06:35 White Blood Count 8.9th/mm3 (3.8-10.1) 12.1th/mm3 (3.8-10.1) 10.9th/mm3 (3.8-10.1) Red Blood Count 3.55mil/mm3 (3.90-5.20) 3.53mil/mm3 (3.90-5.20) 3.31mil/mm3 (3.90-5.20) Hemoglobin 10.5g/dL (12.0-15.6) 10.4g/dL (12.0-15.6) 9.7g/dL (12.0-15.6) Hematocrit 31.7% (35.0-46.0) 31.7% (35.0-46.0) 29.3% (35.0-46.0) Mean Corpuscular Volume 89.3fL (81-100) 89.8fL (81-100) 88.5fL (81-100) Mean Corpuscular Hemoglobin 29.6pg (27.0-35.0) 29.5pg (27.0-35.0) 29.3pg (27.0-35.0) Mean Corpuscular Hemoglobin Concent 33.1% (32.0-37.0) 32.8% (32.0-37.0) 33.1% (32.0-37.0) Red Cell Distribution Width 12.3% (12.3-15.4) 12.6% (12.3-15.4) 12.5% (12.3-15.4) Platelet Count 252bil/L (150-400) 244bil/L (150-400) 257bil/L (150-400) Neutrophils (%) (Auto) 88.6% (40-74) 91.8% (40-74) 85.6% (40-74) Lymphocytes (%) (Auto) 5.8% (14-46) 3.6% (14-46) 8.4% (14-46) Monocytes (%) (Auto) 5.2% (4-12) 4.2% (4-12) 5.4% (4-12) Eosinophils (%) (Auto) 0% (0-5) 0% (0-5) 0.1% (0-5) Basophils (%) (Auto) 0.1% (0-3) 0.2% (0-3) 0.2% (0-3) Sodium Level 135mEq/L (134-144) 131mEq/L (134-144) 134mEq/L (134-144) Potassium Level 4.1mEq/L (3.5-5.2) 3.8mEq/L (3.5-5.2) 3.6mEq/L (3.5-5.2) Chloride Level 97mEq/L (97-108) 92mEq/L (97-108) 97mEq/L (97-108) Carbon Dioxide Level 25mmol/L (18-29) 19mmol/L (18-29) 22mmol/L (18-29) Blood Urea Nitrogen 5mg/dL (6-24) 8mg/dL (6-24) 6mg/dL (6-24) Creatinine 0.64mg/dL (0.57-1.00) 0.71mg/dL (0.57-1.00) 0.57mg/dL (0.57-1.00) Estimat Glomerular Filtration Rate 145mL/min (>59) 129mL/min (>59) 166mL/min (>59) Glucose Level 175mg/dL (60-99) 335mg/dL (60-99) 181mg/dL (60-99) Hemoglobin A1c 9.6% (4.8-5.6) Calcium Level 7.2mg/dL (8.5-10.1) 7.6mg/dL (8.5-10.1) 7.1mg/dL (8.5-10.1) Total Bilirubin 0.4mg/dL (0.0-1.2) 0.6mg/dL (0.0-1.2) 0.5mg/dL (0.0-1.2) Aspartate Amino Transf (AST/SGOT) 48U/L (0-50) 97U/L (0-50) 62U/L (0-50) Alanine Aminotransferase (ALT/SGPT) 34U/L (0-32) 54U/L (0-32) 42U/L (0-32) Alkaline Phosphatase 189U/L (25-150) 180U/L (25-150) 162U/L (25-150) Total Protein 6.1g/dL (6.4-8.4) 6.4g/dL (6.4-8.4) 5.5g/dL (6.4-8.4) Albumin 3.1g/dL (3.4-5.0) 2.9g/dL (3.4-5.0) 2.8g/dL (3.4-5.0) Lipase 14U/L (13-60) Result Diagram: 12/10/16 0635 12/10/16 0635 Assessment & Plan # Postop day #1 status post lap cholecystectomy for acute gangrenous cholecystitis Further directions per general surgery as far as progressing diet. Continue with IV Zosyn Incentive spirometry Encourage ambulation # Type II diabetes, chronic, present on admission On subcutaneous insulin protocol # DVT prophylaxis We will defer to Gen. surgery when they want to initiate or if they would initiate subcutaneous Lovenox versus heparin Continue with SCDs Pain Evaluation: Adequate Pain Control VTE Prophylaxis: SCDs VTE Mechanical Devices: Intermittant Pneumatic CD Resuscitation Status: CPR: Attempt Resuscitation Time spent Time spent 30 minutes Marianela Willett MD Dec 10, 2016 16:21
--- NOTE | 2016-12-10 17:40 | NUR ---
Activity Pt. ambulated around unit with family. Tolerated activity well. No complaints of SOB or ROMAN. Pt. returned to lowered bed with nonskid footwear and call light in reach.
[2016-12-10 19:45] VITALS: BP 100/59; PULSE 101; RESP 20; O2SAT 96
[2016-12-11] MEDS: oxyCODONE-Acetamin 5-325 mg Tablet PO PRN ×5 (04:16→23:10)
[2016-12-11 04:57] VITALS: BP 112/71; PULSE 96; RESP 18; O2SAT 95
--- NOTE | 2016-12-11 06:26 | NUR ---
Pain / fever Pain adequately controlled with Percocet prn. Continues to have intermittent fevers, antibiotics infused per orders. Ambulated loop in hallway before sleep. Hourly rounding ongoing.
[2016-12-11] MEDS: Piperacillin-Tazo 3.375 Gm Inj 3.375 GM in Dextrose 5% Minibag Plus 50 ML IV SCH ×3 (06:39→23:46)
[2016-12-11 06:40] LABS: BASOPHILS % (AUTO) 0.2 % (0-3); EOSINOPHILS % (AUTO) 0.6 % (0-5); MONOCYTES % (AUTO) 6.3 % (4-12); Mean Corpuscular Hemoglobin 29.6 pg (27.0-35.0); Mean Corpuscular Volume 89.1 fL (81-100); NEUTROPHILS % (AUTO) 84.5 % (40-74); Platelet Count 284 bil/L (150-400)
[2016-12-11] MEDS: Insulin Human REGular 300 Unit/3 mL Inj SUBQ SCH ×4 (07:55→21:57)
[2016-12-11] MEDS: 0.9% Sodium Chloride 1,000 ML IV SCH (09:44)
--- NOTE | 2016-12-11 09:56 | PCM.PNSURG ---
Subjective Date of Service: Dec 11, 2016 Visit Information: Reason for Visit Cholecystitis Surgery/Surgery Date LAP GLORY 12/09/16 Post-Op Day #2 Date of Admission: Dec 08, 2016 at 22:11 Hospital Day # Subjective: Drinking liquids and eating hot cereal with no nausea or vomiting, somewhat anorexic. No flatus or BM. Ambulatory without assistance. Comfortable on oral analgesic. Postop General: No Complaints Gastrointestinal: Tolerating Oral Feedings, No N/V Pain Management: PO Postop Activity: Ambulating Independently Objective Vital Sign- Last 8 Hours Date Time Temp Pulse Resp B/P Pulse Ox O2 Delivery O2 Flow Rate FiO2 12/11/16 04:57 37.6 96 18 112/71 95 Room Air Intake and Output- Last 8 Hour 12/11/16 Cumulative From/Thru 07:00 12/08/16 16:43 - 12/11/16 06:27 Intake Total 1775 ml 21207 ml Output Total 800 ml 4400 ml Balance 975 ml 6684 ml Intake Oral 600 ml 3338 ml IV Total 1175 ml 7746 ml Output Urine Total 800 ml 4400 ml # Voids 7 # Bowel Movements 0 0 General: Alert, Cooperative, No Acute Distress Lungs: Clear to Auscultation Heart: Regular Rate/Rhythm Abdomen: Soft, Non-tender, Protuberant SURGICAL WOUND : Wound General Appearence: Steri Strips, Sutures, No Erythema, No Discharge, Wound under dressing Extremities: Thigh&Calf Soft/Nontender Neuro: Normal Speech Catheters: None Result Diagram: 12/11/16 0630 12/10/16 0635 Assessment & Plan Impression Primary diagnosis: Acute gangrenous cholecystitis. POD #2 recovering as expected. Positive preoperative blood cultures which have been repeated by hospitalist configuration consultant. Other diagnoses: 1. Diabetes. 2. Asthma. 3. High cholesterol. 4. Chronic back pain. 5. Fibromyalgia. 6. Sjogren syndrome. Problems: Plan 1. Diet as tolerated 2. Milk of magnesia 3. Disposition as per hospitalist service pending bacteremia treatment and final blood culture results. Pain Management: Oral analgesic VTE Prophylaxis: SCDs Resuscitation Status: CPR: Attempt Resuscitation Sekou Centeno PA-C Dec 11, 2016 09:56
[2016-12-11] MEDS ORDERED: Magnesium Hydroxide 10 mL Oral Concentration PO PRN (10:00)
[2016-12-11] MEDS ORDERED: Magnesium Hydroxide 10 mL Oral Concentration PO ONE (10:00)
--- NOTE | 2016-12-11 14:09 | PATH ---
SURGICAL PATHOLOGY Attending Physician:Romana Johns MD CASE STATUS: Signed Out PATIENT NAME: JANE HEDRICK PID: [id number] : 1975 DATE COLLECTED:12/09/2016 22:01 SPECIMEN: Gallbladder CLINICAL HISTORY: CHOLECYSTITIS 1). GALLBLADDER FINAL DIAGNOSIS: 1.GALLBLADDER: CHOLELITHIASIS WITH ASSOCIATED ACUTE AND CHRONIC CHOLECYSTITIS WITH HEMORRHAGE AND PROMINENT FIBROSIS. ICD10 CODEK80.66 GROSS DESCRIPTION: The specimen is received in formalin, labeled with the patient's name, sublabeled as gallbladder and consists of an opened gallbladder (length-6.2 cm, diameter-3.5 cm). The cystic duct cannot be identified. No lymph nodes are identified. The serosa is staples-nelson smooth and shiny and partially covered in staples flaky friable exudate. The mucosa is brown semi-velvety with a focally pale yellow soft area (2.3 x 1.1 x 0.1 cm) located 1.3 cm from the fundus. The wall is up to 0.5 cm thick. A dark brown smooth shiny oblong calculus (3.5 x 2.7 x 2.5 cm) with a clear crystalline cut surface is also submitted. Section code: (A-C) gallbladder, loan representative, submitted proximal to distal. 12/10/16 . MICRO DESCRIPTION: See diagnosis. ICD-9 CODES: CPT CODES: 1: 75178 Electronically Signed Out Pablo Mills MD [facility] [address], [place] [address] Technical component performed at [facility], [facility] [address], [place], [address]
--- NOTE | 2016-12-11 15:04 | PCM.PNMED ---
Subjective Date of Service Dec 11, 2016 Subjective Patient still with some abdominal pain. She has had no nausea or vomiting. Denies any fevers or chills. Has been ambulating without issues. Exam Vital Signs Vital Sign - Last Date Time Temp Pulse Resp B/P Pulse Ox O2 Delivery O2 Flow Rate FiO2 12/11/16 04:57 37.6 96 18 112/71 95 Room Air 12/09/16 14:50 8 Intake and Output 12/10/16 12/10/16 12/11/16 Cumulative From/Thru 15:00 23:00 07:00 12/08/16 16:43 - 12/11/16 06:27 Intake Total 2504 ml 1775 ml 88209 ml Output Total 2000 ml 800 ml 4400 ml Balance 504 ml 975 ml 6684 ml Intake Oral 1390 ml 600 ml 3338 ml IV Total 1114 ml 1175 ml 7746 ml Output Urine Total 2000 ml 800 ml 4400 ml # Voids 7 # Bowel Movements 0 0 0 Exam Constitutional: Obese female in mild pain distress Head: Normocephalic atraumatic Chest: Clear to auscultation Cor: Regular rate and rhythm S1-S2 without murmur Abdomen: Soft mild diffuse tenderness no rebound no guarding bowel sounds are present Extremities: No pedal edema Lab and Diagnostics Laboratory Tests 72 Hours Test 12/08/16 17:09 12/08/16 17:31 12/08/16 18:00 12/08/16 20:18 Hold Urine Received (Received) Urine Color Yellow (YELLOW) Urine Appearance Hazy (CLEAR,HAZY) Urine pH 6.0 (5.0-8.0) Urine Specific [place] 1.030 (1.003-1.035) Urine Protein Tracemg/dL (NEG,TRACE) Urine Glucose (UA) Negativemg/dL (NEGATIVE) Urine Ketones Negativemg/dL (NEGATIVE) Urine Occult Blood Trace (NEGATIVE) Urine Nitrite Negative (NEGATIVE) Urine Bilirubin Negative (NEGATIVE) Urine Urobilinogen Normalmg/dL (NORMAL) Urine Leukocyte Esterase Moderate (NEGATIVE) Urine RBC 0-2/hpf (0-2) Urine WBC 0-5/hpf (0-5) Urine Epithelial Cells None/hpf (NONE-MOD) Urine Crystals None seen (NONE SEEN) Urine Bacteria Few/hpf (NONE-FEW) Urine Hyaline Casts None/lpf (NONE) Urine Granular Casts None seen (NONE SEEN) Urine Waxy Casts None seen (NONE SEEN) Urine Red Blood Cell Casts None seen (NONE SEEN) Urine White Blood Cell Casts None seen (NONE SEEN) Urine Mucus None seen (None Seen) Urine Trichomonas None seen (NONE SEEN) Urine Yeast None (NONE SEEN) Urinalysis Comment None Urine Culture Reflexed Indicated White Blood Count 9.4th/mm3 (3.8-10.1) Red Blood Count 3.83mil/mm3 (3.90-5.20) Hemoglobin 11.4g/dL (12.0-15.6) Hematocrit 34.0% (35.0-46.0) Mean Corpuscular Volume 88.8fL (81-100) Mean Corpuscular Hemoglobin 29.8pg (27.0-35.0) Mean Corpuscular Hemoglobin Concent 33.5% (32.0-37.0) Red Cell Distribution Width 12.4% (12.3-15.4) Platelet Count 333bil/L (150-400) Neutrophils (%) (Auto) 84.7% (40-74) Lymphocytes (%) (Auto) 6.7% (14-46) Monocytes (%) (Auto) 7.9% (4-12) Eosinophils (%) (Auto) 0.3% (0-5) Basophils (%) (Auto) 0.2% (0-3) Prothrombin Time 11.0sec (8.1-12.5) Prothromb Time International Ratio 1.03ratio Sodium Level 134mEq/L (134-144) Potassium Level 4.7mEq/L (3.5-5.2) Chloride Level 94mEq/L (97-108) Carbon Dioxide Level 25mmol/L (18-29) Blood Urea Nitrogen 6mg/dL (6-24) Creatinine 0.58mg/dL (0.57-1.00) Estimat Glomerular Filtration Rate 163mL/min (>59) Glucose Level 183mg/dL (60-99) Lactic Acid Level 1.2mmol/L (0.4-2.0) Calcium Level 8.0mg/dL (8.5-10.1) Total Bilirubin 0.3mg/dL (0.0-1.2) Aspartate Amino Transf (AST/SGOT) 61U/L (0-50) Alanine Aminotransferase (ALT/SGPT) 33U/L (0-32) Alkaline Phosphatase 177U/L (25-150) Total Protein 6.9g/dL (6.4-8.4) Albumin 3.4g/dL (3.4-5.0) Lipase 18U/L (13-60) Acetaminophen Level < 15.0ug/mL Rx (10-25) Hepatitis A IgM Antibody Negative (Negative) Hepatitis B Surface Antigen Negative (Negative) Hepatitis B Core IgM Antibody Negative (Negative) Hepatitis C Antibody <0.1s/co ratio (0.0-0.9) Hepatitis C Comment Comment (.) Test 12/09/16 06:29 12/09/16 16:54 12/10/16 06:35 12/11/16 06:30 White Blood Count 8.9th/mm3 (3.8-10.1) 12.1th/mm3 (3.8-10.1) 10.9th/mm3 (3.8-10.1) 11.9th/mm3 (3.8-10.1) Red Blood Count 3.55mil/mm3 (3.90-5.20) 3.53mil/mm3 (3.90-5.20) 3.31mil/mm3 (3.90-5.20) 3.11mil/mm3 (3.90-5.20) Hemoglobin 10.5g/dL (12.0-15.6) 10.4g/dL (12.0-15.6) 9.7g/dL (12.0-15.6) 9.2g/dL (12.0-15.6) Hematocrit 31.7% (35.0-46.0) 31.7% (35.0-46.0) 29.3% (35.0-46.0) 27.7% (35.0-46.0) Mean Corpuscular Volume 89.3fL (81-100) 89.8fL (81-100) 88.5fL (81-100) 89.1fL (81-100) Mean Corpuscular Hemoglobin 29.6pg (27.0-35.0) 29.5pg (27.0-35.0) 29.3pg (27.0-35.0) 29.6pg (27.0-35.0) Mean Corpuscular Hemoglobin Concent 33.1% (32.0-37.0) 32.8% (32.0-37.0) 33.1% (32.0-37.0) 33.2% (32.0-37.0) Red Cell Distribution Width 12.3% (12.3-15.4) 12.6% (12.3-15.4) 12.5% (12.3-15.4) 12.5% (12.3-15.4) Platelet Count 252bil/L (150-400) 244bil/L (150-400) 257bil/L (150-400) 284bil/L (150-400) Neutrophils (%) (Auto) 88.6% (40-74) 91.8% (40-74) 85.6% (40-74) 84.5% (40-74 ) Lymphocytes (%) (Auto) 5.8% (14-46) 3.6% (14-46) 8.4% (14-46) 8.0% (14-46) Monocytes (%) (Auto) 5.2% (4-12) 4.2% (4-12) 5.4% (4-12) 6.3% (4-12) Eosinophils (%) (Auto) 0% (0-5) 0% (0-5) 0.1% (0-5) 0.6% (0-5) Basophils (%) (Auto) 0.1% (0-3) 0.2% (0-3) 0.2% (0-3) 0.2% (0-3) Sodium Level 135mEq/L (134-144) 131mEq/L (134-144) 134mEq/L (134-144) Potassium Level 4.1mEq/L (3.5-5.2) 3.8mEq/L (3.5-5.2) 3.6mEq/L (3.5-5.2) Chloride Level 97mEq/L (97-108) 92mEq/L (97-108) 97mEq/L (97-108) Carbon Dioxide Level 25mmol/L (18-29) 19mmol/L (18-29) 22mmol/L (18-29) Blood Urea Nitrogen 5mg/dL (6-24) 8mg/dL (6-24) 6mg/dL (6-24) Creatinine 0.64mg/dL (0.57-1.00) 0.71mg/dL (0.57-1.00) 0.57mg/dL (0.57-1.00) Estimat Glomerular Filtration Rate 145mL/min (>59) 129mL/min (>59) 166mL/min (>59) Glucose Level 175mg/dL (60-99) 335mg/dL (60-99) 181mg/dL (60-99) Hemoglobin A1c 9.6% (4.8-5.6) Calcium Level 7.2mg/dL (8.5-10.1) 7.6mg/dL (8.5-10.1) 7.1mg/dL (8.5-10.1) Total Bilirubin 0.4mg/dL (0.0-1.2) 0.6mg/dL (0.0-1.2) 0.5mg/dL (0.0-1.2) Aspartate Amino Transf (AST/SGOT) 48U/L (0-50) 97U/L (0-50) 62U/L (0-50) Alanine Aminotransferase (ALT/SGPT) 34U/L (0-32) 54U/L (0-32) 42U/L (0-32) Alkaline Phosphatase 189U/L (25-150) 180U/L (25-150) 162U/L (25-150) Total Protein 6.1g/dL (6.4-8.4) 6.4g/dL (6.4-8.4) 5.5g/dL (6.4-8.4) Albumin 3.1g/dL (3.4-5.0) 2.9g/dL (3.4-5.0) 2.8g/dL (3.4-5.0) Lipase 14U/L (13-60) Hematology Comments Result Diagram: 12/11/16 0630 12/10/16 0635 Assessment & Plan # Postop day #2 status post lap cholecystectomy for acute gangrenous cholecystitis Spoke with surgery and per their perspective patient is ready for discharge however given the bacteremia in 2 out of 4 cultures will continue with 2 more days of IV Zosyn Continue with IV Zosyn Incentive spirometry Encourage ambulation # Type II diabetes, chronic, present on admission On subcutaneous insulin protocol # DVT prophylaxis We will go ahead and get subcutaneous Lovenox prophylactic dosing initiated Continue with SCDs while in bed VTE Prophylaxis: SCDs VTE Mechanical Devices: Intermittant Pneumatic CD Resuscitation Status: CPR: Attempt Resuscitation Time spent 30 minutes Marianela Willett MD Dec 11, 2016 15:04
[2016-12-11 16:03] VITALS: BP 118/74; PULSE 93; RESP 18; O2SAT 96
--- NOTE | 2016-12-11 17:38 | NUR ---
Activity / GI Pt up independently in her room and also ambulated in the hallway twice during day shift. Pt reported that she is passing flatus and that she did have an "average" size loose bowel movement today. Pt tolerating diet and PO fluids without problems. Care continues.
[2016-12-11 20:41] VITALS: BP 117/72; PULSE 94; RESP 20; O2SAT 98
--- NOTE | 2016-12-12 00:40 | NUR ---
Patient activity: Patient requested to take a shower. Peripheral IV site was saline locked and [employer] provided a glove/sleeve for IV site. Patient was able to independently shower. Patient is stable on feet and tolerates activity well.
--- NOTE | 2016-12-12 00:41 | NUR ---
Peripheral IV: Patient IV would not flush before administering scheduled antibiotics. Assessed with preceptor and determined that IV site had went bad. This site was discontinued and another nurse started a new peripheral IV site in Right AC. Flushed and hung antibiotics. Patent site and IV/Fluids running without issue.
[2016-12-12] MEDS: oxyCODONE-Acetamin 5-325 mg Tablet PO PRN ×5 (05:21→21:51)
[2016-12-12 05:56] VITALS: BP 108/68; PULSE 92; RESP 20; O2SAT 96
--- NOTE | 2016-12-12 06:07 | NUR ---
Pain Patient complained of abdominal pain /. 2 tabs of Percocet given x2 throughout night. Was effective in reducing pain to 4/10. Patient was able to sleep intermittently. Instructed patient to not let pain get too severe before asking for pain medications since patient wakes up in severe (9/10) pain. Patient denies nausea and vomiting.
[2016-12-12] MEDS: Piperacillin-Tazo 3.375 Gm Inj 3.375 GM in Dextrose 5% Minibag Plus 50 ML IV SCH ×3 (08:14→23:02)
[2016-12-12] MEDS: Insulin Human REGular 300 Unit/3 mL Inj SUBQ SCH ×4 (08:14→21:53)
--- NOTE | 2016-12-12 09:12 | PCM.PNSURG ---
Subjective Visit Information: Reason for Visit Cholecystitis Surgery/Surgery Date LAP MILY 12/09/16 Post-Op Day # Date of Admission: Dec 08, 2016 at 22:11 Hospital Day # Subjective: doing fine, tolerating diet, on IV abx due to + blood culture, on pain meds Objective Objective Awake in bed Sister in room Abd: obese, incisions and dressing clean Vital Sign- Last 8 Hours Date Time Temp Pulse Resp B/P Pulse Ox O2 Delivery O2 Flow Rate FiO2 12/12/16 05:56 36.7 92 20 108/68 96 Room Air Intake and Output- Last 8 Hour 12/12/16 Cumulative From/Thru 07:00 12/08/16 16:43 - 12/12/16 06:17 Intake Total 146 ml 04925 ml Output Total 5350 ml Balance 146 ml 7261 ml Intake Oral 4238 ml IV Total 146 ml 8373 ml Output Urine Total 5350 ml # Voids 7 # Bowel Movements 0 Result Diagram: 12/11/16 0630 12/10/16 0635 Assessment & Plan Impression POD #3 s/p lap mily DM Obesity + blood culture Problems: Plan Continue IV abx til tomorrow (per hospitalist) Hopefully d/c home tomorrow VTE Prophylaxis: SCDs Resuscitation Status: CPR: Attempt Resuscitation Tashi Sandoval MD Dec 12, 2016 09:12
--- NOTE | 2016-12-12 15:37 | PCM.PNMED ---
Subjective Date of Service Dec 12, 2016 Subjective Patient resting in bed. She has been walking and ambulating here along the lemon. Does have some mild abdominal pain. She is progressing or diet and tolerating this well. Exam Vital Signs Vital Sign - Last Date Time Temp Pulse Resp B/P Pulse Ox O2 Delivery O2 Flow Rate FiO2 12/12/16 05:56 36.7 92 20 108/68 96 Room Air 12/09/16 14:50 8 Intake and Output 12/11/16 12/11/16 12/12/16 Cumulative From/Thru 14:59 22:59 06:59 12/08/16 16:43 - 12/12/16 06:17 Intake Total 1381 ml 146 ml 96916 ml Output Total 950 ml 5350 ml Balance 431 ml 146 ml 7261 ml Intake Oral 900 ml 4238 ml IV Total 481 ml 146 ml 8373 ml Output Urine Total 950 ml 5350 ml # Voids 7 # Bowel Movements 0 0 Exam Head: Normocephalic H medic Chest: Clear to auscultation Cor: Regular rate and rhythm S1-S2 Abdomen: Soft mild tenderness in the right upper quadrant no rebound no guarding bowel sounds are present Extremities: No pedal edema Lab and Diagnostics Laboratory Tests 72 Hours Test 12/09/16 16:54 12/10/16 06:35 12/11/16 06:30 White Blood Count 12.1th/mm3 (3.8-10.1) 10.9th/mm3 (3.8-10.1) 11.9th/mm3 (3.8-10.1) Red Blood Count 3.53mil/mm3 (3.90-5.20) 3.31mil/mm3 (3.90-5.20) 3.11mil/mm3 (3.90-5.20) Hemoglobin 10.4g/dL (12.0-15.6) 9.7g/dL (12.0-15.6) 9.2g/dL (12.0-15.6) Hematocrit 31.7% (35.0-46.0) 29.3% (35.0-46.0) 27.7% (35.0-46.0) Mean Corpuscular Volume 89.8fL (81-100) 88.5fL (81-100) 89.1fL (81-100) Mean Corpuscular Hemoglobin 29.5pg (27.0-35.0) 29.3pg (27.0-35.0) 29.6pg (27.0-35.0) Mean Corpuscular Hemoglobin Concent 32.8% (32.0-37.0) 33.1% (32.0-37.0) 33.2% (32.0-37.0) Red Cell Distribution Width 12.6% (12.3-15.4) 12.5% (12.3-15.4) 12.5% (12.3-15.4) Platelet Count 244bil/L (150-400) 257bil/L (150-400) 284bil/L (150-400) Neutrophils (%) (Auto) 91.8% (40-74) 85.6% (40-74) 84.5% (40-74) Lymphocytes (%) (Auto) 3.6% (14-46) 8.4% (14-46) 8.0% (14-46) Monocytes (%) (Auto) 4.2% (4-12) 5.4% (4-12) 6.3% (4-12) Eosinophils (%) (Auto) 0% (0-5) 0.1% (0-5) 0.6% (0-5) Basophils (%) (Auto) 0.2% (0-3) 0.2% (0-3) 0.2% (0-3) Sodium Level 131mEq/L (134-144) 134mEq/L (134-144) Potassium Level 3.8mEq/L (3.5-5.2) 3.6mEq/L (3.5-5.2) Chloride Level 92mEq/L (97-108) 97mEq/L (97-108) Carbon Dioxide Level 19mmol/L (18-29) 22mmol/L (18-29) Blood Urea Nitrogen 8mg/dL (6-24) 6mg/dL (6-24) Creatinine 0.71mg/dL (0.57-1.00) 0.57mg/dL (0.57-1.00) Estimat Glomerular Filtration Rate 129mL/min (>59) 166mL/min (>59) Glucose Level 335mg/dL (60-99) 181mg/dL (60-99) Calcium Level 7.6mg/dL (8.5-10.1) 7.1mg/dL (8.5-10.1) Total Bilirubin 0.6mg/dL (0.0-1.2) 0.5mg/dL (0.0-1.2) Aspartate Amino Transf (AST/SGOT) 97U/L (0-50) 62U/L (0-50) Alanine Aminotransferase (ALT/SGPT) 54U/L (0-32) 42U/L (0-32) Alkaline Phosphatase 180U/L (25-150) 162U/L (25-150) Total Protein 6.4g/dL (6.4-8.4) 5.5g/dL (6.4-8.4) Albumin 2.9g/dL (3.4-5.0) 2.8g/dL (3.4-5.0) Hematology Comments Result Diagram: 12/11/16 0630 12/10/16 0635 Assessment & Plan # Postop day #3 status post lap cholecystectomy for acute gangrenous cholecystitis Spoke with surgery and per their perspective patient is ready for discharge however given the bacteremia in 2 out of 4 cultures will continue with 2 more days of IV Zosyn Continue with IV Zosyn with last dose tomorrow a.m. and then can be potentially discharged home on by mouth Augmentin 7 days Incentive spirometry Encourage ambulation # Type II diabetes, chronic, present on admission On subcutaneous insulin protocol # DVT prophylaxis We will go ahead and get subcutaneous Lovenox prophylactic dosing initiated Continue with SCDs while in bed VTE Prophylaxis: SCDs VTE Mechanical Devices: Intermittant Pneumatic CD Resuscitation Status: CPR: Attempt Resuscitation Time spent 20 minutes Marianela Willett MD Dec 12, 2016 15:37
[2016-12-12 17:06] VITALS: BP 127/77; PULSE 85; RESP 16; O2SAT 97
--- NOTE | 2016-12-12 17:37 | NUR ---
Social Work: Readiness for Discharge D: Pt is postop day #3 for lap cholecystectomy for acute gangrenous cholecystitis; per EMR review and MD notes, pt is not medically stable for discharge however is anticipate to be ready tomorrow. Pt currently on IV Zosyn with final dose scheduled for tomorrow morning. Pt should discharge home after. Per [facility] [employer], pt has been I during admission with MD note stating pt has been ambulating halls I. No barriers or needs identified at this time. A: Pt who lives at home and is I. P: Anticipate pt to discharge home tomorrow pending she is medically stable; RIM TURNING MACHINE OPERATOR to follow and assist with discharge planning if needs arise. JT Toribio
[2016-12-12 20:07] VITALS: BP 121/78; PULSE 81; RESP 18; O2SAT 94
--- NOTE | 2016-12-12 22:40 | NUR ---
Pain Reminded patient of importance to stay on top of pain management and not to wait too long between taking PRN analgesics. Advised patient that it is easier to maintain pain at an acceptable level than to bring pain down once it gets severe. Patient understands and will communicate her pain level frequently. Currently managing pain with (2) Percocet tabs (5/325mg) every four hours. This seems to be effective at keeping pain in the 5-6/10 range.
[2016-12-13 02:04] VITALS: BP 128/85; PULSE 85; RESP 18; O2SAT 94
[2016-12-13] MEDS: oxyCODONE-Acetamin 5-325 mg Tablet PO PRN ×2 (05:01→09:00)
[2016-12-13 05:05] VITALS: BP 132/75; PULSE 89; RESP 18; O2SAT 97
[2016-12-13] MEDS: Piperacillin-Tazo 3.375 Gm Inj 3.375 GM in Dextrose 5% Minibag Plus 50 ML IV SCH (08:09)
[2016-12-13] MEDS: Insulin Human REGular 300 Unit/3 mL Inj SUBQ SCH ×2 (09:00→11:30)
--- NOTE | 2016-12-13 10:16 | PCM.DISURG ---
Surgical Discharge Instruction Date of Service Dec 13, 2016 Dates of Hospitalization Date of Hospital Admission Dec 08, 2016 at 22:11 Providers Admitting Physician: Tashi Sandoval MD Primary Care Physician: Vikas Gomez MD Attending Physician: Tashi Sandoval MD Discharge Diagnosis Discharge Diagnosis Cholecystitis s/p lap cholecystectomy Diet Discharge Diet: No restrictions, Diabetic Activity Discharge Activity-General: Balance rest and activity, Activity as pain allows , No lifting >15 pounds for 2 weeks Dressing and Incisional Care Dressing Care: Keep dressing clean, dry & intact, Allow Steri Stripes to fall off Hygiene: May shower, DO NOT soak incision under water Additional Instructions Discharge Instructions Rx: percocet #25, colace, Augmentin x7d OK to take home meds Follow Up Plan Follow-up Provider (F9): Romana Johns MD Mid-level Provider (F9): Brigitte Delgado PAC Follow-up appointment: Weeks (2-3) Call your provider for: Fever, Shortness of breath, Increasing abdominal pain, Vomiting, Discharge @ incision, pus discharge Tashi Sandoval MD Dec 13, 2016 10:16
--- NOTE | 2016-12-13 10:21 | NUR ---
Social Work- Discharge Data: EMR reviewed. Pt is on day 5 of hospitalization for cholecystitis per H&P. Pt is medically stable and will discharge today. SW spoke with pt today at bedside to review discharge plan. Pt to complete last dose of IV abx this afternoon. Per RN notes, pt has been up ambulating in room and chi. Pt to discharge home with to transport via POV. No discharge needs identified. Assessment: [place] who [place] independent [place] base. Plan: Pt to discharge home today. Pt to discharge home with to transport via POV. No discharge needs identified. Toya Brewster, TOP EXECUTIVE
--- NOTE | 2016-12-13 19:38 | NUR ---
D/C'd Pt D/C'd home via wheelchair with spouse at 1400 post zosyn admin. Hard copy of prescriptions and all pt belongings went with pt. Pt signed and stated understanding of D/C information, including follow up appointment information and new prescriptions, prior to D/C, IV removed intact.
--- NOTE | 2016-12-14 10:55 | PCM.DC.SUR ---
Discharge Summary Date of Service: Date of Hospital Admission: Dec 08, 2016 at 22:11 Date of Operation(s): 12/09/2016 Date of Discharge: 12/13/2016 Diagnosis at Time of Discharge Primary diagnosis: 1. Acute gangrenous cholecystitis. 2. Bacteremia with one set of positive blood cultures growing STREP AGALACTIAE - (GROUP B) Other diagnoses: 1. Diabetes. 2. Asthma. 3. High cholesterol. 4. Chronic back pain. 5. Fibromyalgia. 6. Sjogren syndrome. Problems: Operation Laparoscopic cholecystectomy Brief History and Physical: This is a 41-year-old woman who presented with a 9-day history of abdominal pain and vomiting. She had right upper quadrant tenderness and an abdominal ultrasound performed in the emergency department that revealed a thickened gallbladder wall, positive sonographic Tiwari sign, sludge and stones in the gallbladder including a 3 cm stone, and was consistent with acute cholecystitis. She was febrile and tachycardic and therefore was taken urgently to the operating room for laparoscopic cholecystectomy. Consultants: Hospitalist Hospital Course: The patient was admitted and underwent the above-mentioned operation without complication. She looks surprisingly well on her first and second postsurgical day despite having one set of positive blood cultures growing STREP AGALACTIAE - (GROUP B). Hospitalist was consulted and the patient remained hospitalized until her fourth postsurgical day for IV antibiotics. The patient was able to be discharged on her fourth postsurgical day on oral antibiotics. Pathology: FINAL DIAGNOSIS: 1.GALLBLADDER: CHOLELITHIASIS WITH ASSOCIATED ACUTE AND CHRONIC CHOLECYSTITIS WITH HEMORRHAGE AND PROMINENT FIBROSIS. Disposition: The patient was discharged home on her fourth postsurgical day at which time she was tolerating a diet, her wounds were dry and intact, she was afebrile, and her pain was well controlled on oral analgesic. Follow-up Plan: She will follow-up in the office with Brigitte Delgado PA-C in 2-3 weeks. Acetaminophen (Acetaminophen) 325 Mg Tablet 325-650 MG PO Q4H PRN PRN Fever/ Pain (Reported) Atorvastatin (Lipitor) 40 Mg Tablet 40 MG PO HS (Reported) Fluoxetine (Fluoxetine) 20 Mg Capsule 60 MG PO DAILY (Reported) Folic Acid (Folic Acid) 1 Mg Tablet 15 MG PO DAILY (Reported) Gabapentin (Gabapentin) 100 Mg Capsule 100 MG PO QAM (Reported) Gabapentin (Gabapentin) 100 Mg Capsule 300 MG PO HS (Reported) Glipizide (Glipizide) 5 Mg Tablet 10 MG PO BIDWM (Reported) Hydroxychloroquine Sulfate (Hydroxychloroquine Sulfate) 200 Mg Tablet 200 MG PO BID (Reported) Metformin (Metformin) 500 Mg Tablet 500 MG PO BIDWM (Reported) Omeprazole (Omeprazole) 20 Mg Capsule.dr 40 MG PO QAM (Reported) Pilocarpine (Pilocarpine) 5 Mg Tablet 10 MG PO TID (Reported) copies to: Vikas Gomez MD, Fred H PA-C Dec 14, 2016 10:55
--- NOTE | 2016-12-15 16:46 | NUR ---
Diabetes Discharge follow up phone call: Patient stated that she has all of her needed medications. Takes Metformin 500 BID. When asked about her blood sugars, patient stated that she does not have a glucometer. Referred patient to [facility]. They have inexpensive models. Discussed need to monitor blood sugars after surgery because elevated blood sugars can slow healing. Stated understanding. She has a follow up appointment with her surgeon on 12/24 and will call to schedule an appt with her primary physician. No further questions at this time.
== END 2016-12-13 13:34 | disposition home or self-care (01) | DRG 263 ==
LOC: SED 16:27 → EDUNIT# 16:27 → OSC 22:11
PROVIDERS: ADMIT Surgery; ATTEND Surgery
PROC: 3E0234Z Introduction of Serum, Toxoid and Vaccine into Muscle, Percutaneous Approach (ICD-10-PCS; 2016-12-09)
PROC: 0FT44ZZ Resection of Gallbladder, Percutaneous Endoscopic Approach (ICD-10-PCS; principal; 2016-12-09 11:00)
DX: K80.12 Calculus of gallbladder with acute and chronic cholecystitis without obstruction (principal); Z68.42 Body mass index [BMI] 45.0-49.9, adult; R78.81 Bacteremia; E66.01 Morbid (severe) obesity due to excess calories; M35.00 Sjogren syndrome, unspecified; E11.9 Type 2 diabetes mellitus without complications; J45.909 Unspecified asthma, uncomplicated; B95.1 Streptococcus, group B, as the cause of diseases classified elsewhere; M79.7 Fibromyalgia; Z23 Encounter for immunization